=== PATIENT | female | born 1940 | race Caucasian/White ===

== ENCOUNTER 2016-10-30 16:52 | Inpatient (IN) | payer MEDICARE, MEDICAID ==
[~2016-10-30] VITALS: Ht 154.9 cm; Wt 59.4 kg
[2016-10-30 20:00] VITALS: BP 142/54
--- NOTE | 2016-10-30 20:00 | NUR ---
LABORER ELECTROPLATING NOTE RECEIVED PATIENT FROM [facility]. SISTER AT BEDSIDE WITH ALL BELONGINGS. NO RESPIRATORY DISTRESS, CHEST PAIN OR DISCOMFORT OF ANY KIND AT THIS TIME. PATIENT CONFUSED AT THIS TIME. ORIENTED PATIENT AND SISTER TO ROOM AND TO UNIT. NO SKIN BREAKDOWN OR BRUISING NOTED. ALL BELONGINGS CHECKED AND ACCOUNTED FOR. IV SITES INTACT, WITH NO REDNESS NOTED. BED LOCKED AND IN LOWEST POSITION. SIDE RAILS UP, CALL LIGHT WITHIN REACH. WILL CONTINUE TO MONITOR.
[2016-10-30] MEDS ORDERED: HYDROCODONE/APAP 5/325MG 1 EACH TABLET PO PRN (20:30)
[2016-10-30] MEDS ORDERED: Z GUARD REMEDY 2 OZ OINT TP PRN (20:30)
[2016-10-30] MEDS ORDERED: ZOLPIDEM TARTRATE 5 MG TABLET PO PRN (20:30)
[2016-10-30] MEDS ORDERED: ONDANSETRON HCL/PF 4 MG/2 ML VIAL IVP PRN (20:30)
[2016-10-30] MEDS ORDERED: ACETAMINOPHEN 325 MG TABLET PO PRN (20:30)
[2016-10-30] MEDS ORDERED: MAGNESIUM HYDROXIDE 30 ML UDC PO PRN (20:30)
[2016-10-30] MEDS ORDERED: FERR-58 PO (21:17)
[2016-10-30] MEDS ORDERED: CHOL200026 PO (21:17)
[2016-10-30] MEDS ORDERED: CALC500T71 PO (21:17)
[2016-10-30] MEDS ORDERED: LEVE500T9 PO (21:17)
[2016-10-30] MEDS ORDERED: UBID400C5 PO (21:17)
[2016-10-30] MEDS ORDERED: TRIA10.8 NS (21:17)
[2016-10-30] MEDS ORDERED: MEMA1CAP3 PO (21:17)
[2016-10-30] MEDS ORDERED: RAMI5CAP PO (21:17)
[2016-10-30] MEDS ORDERED: LORA-258 PO (21:17)
[2016-10-30] MEDS ORDERED: ATOR10TA PO (21:17)
[2016-10-31] VITALS: BP 142/59
[2016-10-31] MEDS ORDERED: LORAZEPAM 0.5 MG TABLET PO PRN (01:00)
[2016-10-31 04:00] VITALS: BP 160/67
--- NOTE | 2016-10-31 06:28 | NUR ---
RN TEAM LEADER NOTE PATIENT STABLE. SLEEPING WELL. NORMAL RESPIRATIONS. NO S/S OF DISCOMFORT. ALL NEEDS MET AND ATTENDED TO. WILL ENDORSE TO DAY SHIFT FOR ALYSE.
[2016-10-31 07:06] VITALS: BP 161/76
[2016-10-31 07:21] LABS: BASOPHILS # (AUTO) 0.1 /CMM (0.0-0.2); EOSINOPHILS # (AUTO) 0.8 /CMM (0.0-0.7); EOSINOPHILS % (AUTO) 8.9 % (0.0-6.0); HEMATOCRIT 37 % (33-45); HEMOGLOBIN 12.3 g/dL (11.5-14.8); LYMPHOCYTES # (AUTO) 1.9 /CMM (0.8-4.8); LYMPHOCYTES % (AUTO) 21.8 % (20.0-44.0); MEAN CORPUSCULAR HEMOGLOBIN 30 PG (26.0-33.0); MEAN CORPUSCULAR HGB CONC 33 g/dl (31.0-36.0); MEAN CORPUSCULAR VOLUME 90 fL (82-100); MONOCYTES # (AUTO) 0.7 /CMM (0.1-1.30); MONOCYTES % (AUTO) 8.3 % (2.0-12.0); NEUTROPHILS # (AUTO) 5.3 /CMM (1.8-8.9); PLATELET COUNT (AUTO) 193 /CMM (150-450); RDW COEFFICIENT OF VARIATION 13.6 (11.5-15.0); WHITE BLOOD COUNT (AUTO) 8.8 K/uL (4.3-11.0)
[2016-10-31 07:25] LABS: CALCIUM, SERUM 8.5 mg/dL (8.5-10.1); CREATININE 0.7 mg/dL (0.6-1.3); MAGNESIUM 1.9 mg/dL (1.8-2.4); PHOSPHORUS 3.5 mg/dL (2.5-4.9)
[2016-10-31] MEDS: PANTOPRAZOLE 40 MG TABLET.DR PO SCH (07:30)
--- NOTE | 2016-10-31 08:00 | NUR ---
SAS ARCHITECT NOTES PATIENT IN BED RESTING NOS SOB OR ACUTE DISTRESS NOTED. BED IN LOW LOCKED POSITION. CALL LIGHT WITHIN REACH. PATIENT NPO FOR NUCLEAR MEDICINE CARDIAC STRESS TEST. WILL CONTINUE TO MONITOR CLOSELY.
--- NOTE | 2016-10-31 08:00 | NUR ---
TWISTER HAND NOTES PATIENT IN BED RESTING NO SOB OR ACUTE DISTRESS NOTED. BED IN LOW LOCKED POSITION. CALL LIGHT WITHIN REACH. WILL CONTINUE TO MONITOR CLOSELY .
[2016-10-31] MEDS: CALCIUM CARBONATE (1250) 500 MG TABLET PO SCH ×2 (09:00→17:16)
[2016-10-31] MEDS: FERROUS SULFATE (325 MG) 325 MG/TAB TABLET PO SCH (09:00)
[2016-10-31] MEDS: LEVETIRACETAM (250 MG) 250 MG TABLET PO SCH ×2 (09:29→22:54)
[2016-10-31 09:41] LABS: THYROID STIMULATING HORMONE 2.946 uIU/mL (0.358-3.74)
--- NOTE | 2016-10-31 11:41 | NUR ---
Social Service consult requested by [facility]. Per H&P report by LUKAS Cheek, pt. is a 76 year old female who was transferred from [facility]. Per [facility] reports, pt complained of palpitations and chest pressure this am. Pt. stated she forgot to take her medication this morning. Also she complained of generalized weakness since 11am. SW met with pt. bedside. 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. Pt. is originally from [place]. Pt's roommate Sister Marguerite was bedside as well. Pt. is A&O x 3. Pt. appeared anxious. Pt. has a history of brain aneurysm and had a clip in 1991. Pt. resides with Sister Marguerite [place] [address] [facility]. Pt. was having trouble spelling her name and writing her signature for consent for an contrast MRI. Pt. informed SW, she is " tired of being sick and tired." Pt. denies suicidal/homicidal ideations and visual/auditory hallucinations at this time. Pt. suffers from anxiety and wishes to be well. Pt. displays some memory loss. Pt. had to leave for an MRI. SW is available for pt. if needed.
[2016-10-31] MEDS ORDERED: REGADENOSON 0.4 MG/5 ML DISP.SYRIN IVP ONE (12:30)
[2016-10-31] MEDS ORDERED: CT SWABBABLE VALVE TRANS SET 1 EA INFUS.SET MC ONE (12:31)
[2016-10-31] MEDS ORDERED: IV NS 0.9% 250 ML IV ONE (12:31)
[2016-10-31] MEDS ORDERED: IOHEXOL-300 100 ML VIAL IV ONE (12:31)
[2016-10-31] MEDS: hydrALAZINE HCL 10 MG TABLET PO SCH ×2 (13:51→22:54)
--- NOTE | 2016-10-31 14:00 | NUR ---
MS RN NOTES PATIENT COMPLETED STRESS TEST AND CT OF BRAIN WITH AND WITHOUT CONTRAST WITH NO ADVERSE REACTION. WILL CONTINUE TO MONITOR.
[2016-10-31 16:00] VITALS: BP 140/65
[2016-10-31 17:42] LABS: APPEARANCE,URINE CLEAR (CLEAR); BILIRUBIN,URINE NEGATIVE (NEGATIVE); BLOOD, URINE NEGATIVE Ery/uL (NEGATIVE); COLOR,URINE YELLOW (YELLOW); KETONES,URINE NEGATIVE (NEGATIVE); LEUKOCYTE ESTERASE ,URINE NEGATIVE (NEGATIVE); NITRITE, URINE NEGATIVE (NEGATIVE); PH,URINE 7.5 (5.0-8.0); PROTEIN,URINE NEGATIVE (NEGATIVE); UGLUCOSE NEGATIVE (NEGATIVE); UROBILINOGEN,URINE 0.2 EU/dL (0.2)
[2016-10-31] MEDS ORDERED: RAMIPRIL 5 MG CAPSULE PO SCH (18:00)
[2016-10-31] MEDS ORDERED: UBIDECARENONE 400 MG PO SCH (18:00)
[2016-10-31] MEDS ORDERED: ATORVASTATIN 10 MG TABLET PO SCH (18:00)
[2016-10-31] MEDS ORDERED: CHOLECALCIFEROL 1,000 UNIT TABLET (VIT D3) PO SCH (18:00)
--- NOTE | 2016-10-31 18:25 | NUR ---
MS RN NOTES PATIENT IN BED RESTING NO SOB OR ACUTE DISTRESS NOTED . ALL DUE MEDICATIONS GIVEN. ALL NEEDS MET WILL ENDORSE TO PM SHIFT ALYSE.
--- NOTE | 2016-10-31 19:30 | NUR ---
MS RN NOTE PATIENT STABLE. NO RESPIRATORY DISTRESS OR SOB NOTED. IV SITE TO LAC IS FLUSHING WELL BUT IS ERD. PATIENT WOULD LIKE IT REMOVED. IV SITE REMOVED, BUT PATIENT IS REFUSING TO HAVE A NEW LINE INSERTED AT THIS TIME. WILL TRY AGAIN LATER. BED LOCKED AND IN LOWEST POSITION. SIDE RAILS UP, CALL LIGHT WITHIN REACH. WILL CONTINUE TO MONITOR.
[2016-10-31 20:00] VITALS: BP 134/58
[2016-10-31] MEDS ORDERED: TRIAMCINOLONE NASAL SPRAY 16.5 GM INHALER NS SCH (20:00)
[2016-10-31 21:10] VITALS: BP 134/58
--- NOTE | 2016-11-01 02:00 | NUR ---
MS RN NOTE ATTEMPTED TO RE-INSERT IV WITH NO SUCCESS. WILL TRY AGAIN LATER.
[2016-11-01] MEDS: hydrALAZINE HCL 10 MG TABLET PO SCH ×2 (05:28→12:22)
--- NOTE | 2016-11-01 06:53 | NUR ---
MS RN NOTE PATIENT STABLE. ATTEMPTED TO RE-INSERT IV TWICE WITH NO SUCCESS. WILL ENDORSE TO DAY SHIFT FOR ALYSE.
[2016-11-01 07:06] LABS: CALCIUM, SERUM 8.7 mg/dL (8.5-10.1); MAGNESIUM 1.9 mg/dL (1.8-2.4)
--- NOTE | 2016-11-01 07:10 | NUR ---
MS RN INITIAL NOTES REPORT RECEIVED AT THE BEDSIDE. PATIENT IS SLEEPING. NO SOB OR DISTRESS NOTED AT THIS TIME. PATIENT DOES NOT APPEAR TO BE IN PAIN, NO FACIAL GRIMACE NOTED. BED IN A LOW POSITION, CALL LIGHT WITHIN PATIENT REACH. WILL CONTINUE TO MONITOR.
[2016-11-01 08:00] VITALS: BP 144/64
[2016-11-01] MEDS: FERROUS SULFATE (325 MG) 325 MG/TAB TABLET PO SCH (08:15)
[2016-11-01] MEDS: PANTOPRAZOLE 40 MG TABLET.DR PO SCH (08:15)
[2016-11-01] MEDS: CALCIUM CARBONATE (1250) 500 MG TABLET PO SCH (09:03)
[2016-11-01] MEDS: LEVETIRACETAM (250 MG) 250 MG TABLET PO SCH (09:03)
[2016-11-01 12:22] VITALS: BP 141/64
--- NOTE | 2016-11-01 14:07 | NUR ---
MS WHEEL ALIGNMENT TECHNICIAN NOTE DISCHARGE INSTRUCTIONS GIVEN TO PATIENT AND SISTER AND ABLE TO UNDERSTAND. ALL DISCHARGE PAPERWORK SIGNED AND BELONGINGS ACCOUNTED FOR. IV WAS PREVIOUSLY REMOVED, NO BLEEDING NOTED AT THE SITE. FLU AND PNEUMONIA VACCINES NOT GIVEN PATIENT REFUSES. PICTURES OF SKIN NOT NEEDED PATIENT SKIN IS INTACT. PATIENT LEFT IN STABLE CONDITION, AMBULATORY, NO SOB OR DISTRESS NOTED, PATIENT DENIES PAIN. PATIENT TOLERATING AMBULATION WITHOUT PROBLEM. PATIENT LEFT VIA PRIVATE CAR, DISCHARGED TO HOME WITH SISTER.
== END 2016-11-01 14:10 | disposition home or self-care (01) | DRG 313 ==
LOC: TELE 19:00 → MED 10-31 16:53
PROVIDERS: ADMIT Nurse Practitioner Acute Care; ATTEND Nurse Practitioner Acute Care
DX: R07.89 Other chest pain (principal); E87.0 Hyperosmolality and hypernatremia; F03.90 Unspecified dementia, unspecified severity, without behavioral disturbance, psychotic disturbance, mood disturbance, and anxiety; E78.5 Hyperlipidemia, unspecified; E86.0 Dehydration; I10 Essential (primary) hypertension; F41.9 Anxiety disorder, unspecified; R53.1 Weakness; I67.2 Cerebral atherosclerosis; R56.9 Unspecified convulsions; Z86.79 Personal history of other diseases of the circulatory system
CPT/HCPCS: 36415; 70470-TC; 80048-TC; 80061-TC; 81000-TC; 82306; 82728-TC; 83540-TC; 83735-TC; 84100-TC; 84439-TC; 84443-TC; 84484-TC; 85025-TC; 87081-TC; 93307-TC; A9502; J2785; J7050; Q9967

== ENCOUNTER 2018-05-10 21:06 | Inpatient (IN) | payer MEDICARE, OTHER ==
[~2018-05-10] VITALS: Ht 170.2 cm; Wt 68.0 kg
[~2018-05-10 21:06] MED LIST: ATOR10TA PO; CALC-1026 PO; CHOL200026 PO; FERR325T24 PO; LEVE500T9 PO; LORA-258 PO; MEMA1CAP3 PO; RAMI5CAP66 PO; TRIA10.8 BNOSTRILS; UBID400C5 PO
[2018-05-10 22:55] LABS: APPEARANCE,URINE CLEAR (CLEAR); BILIRUBIN,URINE NEGATIVE (NEGATIVE); BLOOD, URINE NEGATIVE Ery/uL (NEGATIVE); COLOR,URINE YELLOW (YELLOW); KETONES,URINE TRACE (NEGATIVE); LEUKOCYTE ESTERASE ,URINE NEGATIVE (NEGATIVE); NITRITE, URINE NEGATIVE (NEGATIVE); PROTEIN,URINE NEGATIVE (NEGATIVE); UGLUCOSE NEGATIVE (NEGATIVE); UROBILINOGEN,URINE 0.2 EU/dL (0.2)
[2018-05-10 22:56] LABS: BASOPHILS # (AUTO) 0.1 /CMM (0.0-0.2); BASOPHILS % (AUTO) 0.8 % (0.0-2.0); EOSINOPHILS % (AUTO) 4.2 % (0.0-6.0); HEMATOCRIT 37 % (33-45); HEMOGLOBIN 11.9 g/dL (11.5-14.8); LYMPHOCYTES # (AUTO) 1.8 /CMM (0.8-4.8); LYMPHOCYTES % (AUTO) 18.2 % (20.0-44.0); MEAN CORPUSCULAR HGB CONC 32 g/dl (31.0-36.0); MEAN CORPUSCULAR VOLUME 95 fL (82-100); MONOCYTES # (AUTO) 0.8 /CMM (0.1-1.30); MONOCYTES % (AUTO) 8.4 % (2.0-12.0); NEUTROPHILS # (AUTO) 6.8 /CMM (1.8-8.9); NEUTROPHILS % (AUTO) 68.4 % (43.0-81.0); PLATELET COUNT (AUTO) 179 /CMM (150-450); RED BLOOD CELL COUNT(AUTO) 3.87 MIL/uL (4.0-5.2)
[2018-05-10 23:05] LABS: CALCIUM, SERUM 9.3 mg/dL (8.5-10.1); CARBON DIOXIDE 28 mmol/L (21-32); CHLORIDE 105 mmol/L (98-107); CREATININE 1.2 mg/dL (0.6-1.3); GLUCOSE 85 mg/dL (74-106); POTASSIUM 3.5 mmol/L (3.5-5.1); SODIUM SERUM 143 mmol/L (136-145)
[2018-05-10 23:10] LABS: INR 1.07 (0.87-1.13)
[2018-05-10 23:19] LABS: BACTERIA,URINE None seen /HPF (None Seen); RBC,URINE 0-2 /HPF (0-2); SQUAMOUS EPITHELIAL CELL,UR Few /HPF (None Seen)
[2018-05-10 23:20] LABS: HYALINE CASTS, URINE Few /LPF (None Seen)
[2018-05-10 23:21] LABS: TROPONIN I 0.134 ng/mL (0.00-0.056)
[2018-05-10 23:24] LABS: UREA NITROGEN, BLOOD 36 mg/dL (7-18)
[2018-05-11] VITALS (7 sets, daily range): BP systolic 100–154; BP diastolic 55–79
[2018-05-11] MEDS ORDERED: IV NS 0.9% 1,000 ML BAG IV ONE
[2018-05-11] MEDS ORDERED: ASPIRIN 81 MG TAB.CHEW PO ONE (00:30)
[2018-05-11] MEDS ORDERED: ASPIRIN 81 MG TAB.CHEW ONE (00:34)
[2018-05-11] MEDS ORDERED: IV NS 0.9% 1,000 ML IV PRN (01:27)
[2018-05-11] MEDS ORDERED: MORPHINE SULFATE INJ 2 MG/ML DISP.SYRIN IV PRN (01:30)
[2018-05-11] MEDS ORDERED: ZOLPIDEM TARTRATE 5 MG TABLET PO PRN (01:30)
[2018-05-11] MEDS ORDERED: HYDROCODONE/APAP 5/325MG 1 EACH TABLET PO PRN (01:30)
[2018-05-11] MEDS ORDERED: MAGNESIUM HYDROXIDE 30 ML UDC PO PRN (01:30)
[2018-05-11] MEDS ORDERED: ACETAMINOPHEN 325 MG TABLET PO PRN (01:30)
[2018-05-11] MEDS ORDERED: ONDANSETRON HCL/PF 4 MG/2 ML VIAL IVP PRN (01:30)
[2018-05-11] MEDS ORDERED: MAG HYDROX/AL HYDROX/SIMETH 30 ML UDC PO PRN (01:30)
[2018-05-11 06:43] LABS: TROPONIN I 0.057 ng/mL (0.00-0.056)
[2018-05-11 06:51] LABS: THYROID STIMULATING HORMONE 3.379 uIU/mL (0.358-3.74)
[2018-05-11 07:03] LABS: ALBUMIN 2.9 g/dL (3.4-5.0); BILIRUBIN,DIRECT 0.1 mg/dL (0.0-0.2); BILIRUBIN,TOTAL 0.4 mg/dL (0.2-1.0); TOTAL PROTEIN, SERUM 5.9 g/dL (6.4-8.2)
[2018-05-11] MEDS ORDERED: MORPHINE SULFATE INJ 4 MG/ML DISP.SYRIN IV PRN (07:48)
[2018-05-11] MEDS: LEVETIRACETAM (250 MG) 250 MG TABLET PO SCH ×2 (08:57→21:11)
[2018-05-11] MEDS: IV NS 0.9% 1,000 ML IV PRN ×2 (08:58→21:06)
[2018-05-11] MEDS ORDERED: FERROUS SULFATE (325 MG) 325 MG/TAB TABLET PO SCH (09:00)
[2018-05-11] MEDS: ENOXAPARIN SODIUM 40 MG/0.4 ML DISP.SYRIN SQ SCH (09:02)
[2018-05-11] MEDS: LORAZEPAM 0.5 MG TABLET PO PRN (09:15)
[2018-05-11] MEDS ORDERED: MAGN400T26 PO (14:44)
[2018-05-11] MEDS ORDERED: SENN-18 PO (14:44)
[2018-05-11] MEDS ORDERED: DONE10TA44 PO (14:44)
[2018-05-11] MEDS ORDERED: MULT-447 PO (14:44)
[2018-05-11] MEDS ORDERED: POLY17PO4 PO (14:44)
[2018-05-11] MEDS ORDERED: MEMA10TA PO (14:44)
[2018-05-11] MEDS ORDERED: HYDR25TA4 PO (14:44)
[2018-05-11] MEDS ORDERED: TRIA16.99 BNOSTRILS (14:44)
[2018-05-11] MEDS ORDERED: RISP0.253 PO ×2 (14:44)
[2018-05-11] MEDS ORDERED: BISA10SU8 RC (14:44)
[2018-05-11] MEDS ORDERED: TRAZ-182 PO (14:44)
[2018-05-11] MEDS ORDERED: ASPI-1169 PO (14:44)
[2018-05-11] MEDS ORDERED: MAGN400O6 PO (14:44)
[2018-05-11] MEDS: RAMIPRIL 5 MG CAPSULE PO SCH (17:39)
[2018-05-11] MEDS ORDERED: ATORVASTATIN 10 MG TABLET PO SCH (18:00)
[2018-05-12] VITALS: BP 146/63
[2018-05-12] MEDS: LORAZEPAM 0.5 MG TABLET PO PRN ×2 (00:52→21:19)
[2018-05-12 04:00] VITALS: BP 130/51
[2018-05-12] MEDS: IV NS 0.9% 1,000 ML IV PRN ×2 (05:18→17:34)
[2018-05-12 06:43] LABS: ALANINE AMINOTRANSFERASE 17 U/L (12-78); ALBUMIN 2.8 g/dL (3.4-5.0); ALKALINE PHOSPHATASE 123 U/L (46-116); ASPARTATE AMINOTRANSFERASE 20 U/L (15-37); BILIRUBIN,TOTAL 0.4 mg/dL (0.2-1.0); CALCIUM, SERUM 7.9 mg/dL (8.5-10.1); CARBON DIOXIDE 22 mmol/L (21-32); CHLORIDE 110 mmol/L (98-107); CREATININE 0.8 mg/dL (0.6-1.3); GLUCOSE 88 mg/dL (74-106); MAGNESIUM 1.7 mg/dL (1.8-2.4); PHOSPHORUS 2.4 mg/dL (2.5-4.9); POTASSIUM 3.2 mmol/L (3.5-5.1); SODIUM SERUM 143 mmol/L (136-145); TOTAL PROTEIN, SERUM 5.8 g/dL (6.4-8.2); UREA NITROGEN, BLOOD 22 mg/dL (7-18)
[2018-05-12 06:45] LABS: BASOPHILS # (AUTO) 0.1 /CMM (0.0-0.2); BASOPHILS % (AUTO) 0.5 % (0.0-2.0); HEMATOCRIT 33 % (33-45); LYMPHOCYTES # (AUTO) 1.1 /CMM (0.8-4.8); LYMPHOCYTES % (AUTO) 10.5 % (20.0-44.0); MEAN CORPUSCULAR HGB CONC 33 g/dl (31.0-36.0); MEAN CORPUSCULAR VOLUME 96 fL (82-100); MONOCYTES # (AUTO) 0.8 /CMM (0.1-1.30); NEUTROPHILS # (AUTO) 8.5 /CMM (1.8-8.9); PLATELET COUNT (AUTO) 158 /CMM (150-450); RDW COEFFICIENT OF VARIATION 14.1 (11.5-15.0); WHITE BLOOD COUNT (AUTO) 10.8 K/uL (4.3-11.0)
[2018-05-12 06:46] LABS: TROPONIN I 0.037 ng/mL (0.00-0.056)
[2018-05-12 08:00] VITALS: BP 149/79
[2018-05-12] MEDS: PANTOPRAZOLE 40 MG TABLET.DR PO SCH (08:52)
[2018-05-12] MEDS: LEVETIRACETAM (250 MG) 250 MG TABLET PO SCH ×2 (08:52→20:21)
[2018-05-12] MEDS: ENOXAPARIN SODIUM 40 MG/0.4 ML DISP.SYRIN SQ SCH (08:53)
[2018-05-12] MEDS: POTASSIUM CHLORIDE 20 MEQ TAB.PRT.SR PO SCH ×2 (09:46→10:35)
[2018-05-12] MEDS: Magnesium 1GM/D5W 100ML PREMIX 100 ML IV SCH ×2 (09:46→10:35)
[2018-05-12] MEDS ORDERED: K PHOS NEUTRAL 250 MG TABLET PO ONE (13:30)
[2018-05-12 16:00] VITALS: BP 163/75
[2018-05-12] MEDS: ENSURE ENLIVE 237 ML LIQUID (VANILLA) PO SCH (17:57)
[2018-05-12] MEDS: RAMIPRIL 5 MG CAPSULE PO SCH (18:07)
[2018-05-12 19:30] VITALS: BP 159/68
[2018-05-12] MEDS ORDERED: hydrALAZINE HCL 25 MG TABLET PO PRN (19:30)
[2018-05-13 01:30] VITALS: BP 140/97
[2018-05-13] MEDS ORDERED: FUROSEMIDE 20 MG/2 ML VIAL IV ONE ×2 (02:00→09:00)
[2018-05-13] MEDS: Z GUARD REMEDY 2 OZ OINT TP PRN ×2 (02:42→06:01)
[2018-05-13] MEDS: IV NS 0.9% 1,000 ML IV PRN (06:01)
[2018-05-13 08:00] VITALS: BP 128/63
[2018-05-13] MEDS: PANTOPRAZOLE 40 MG TABLET.DR PO SCH (08:31)
[2018-05-13] MEDS: ENOXAPARIN SODIUM 40 MG/0.4 ML DISP.SYRIN SQ SCH (08:31)
[2018-05-13] MEDS: LEVETIRACETAM (250 MG) 250 MG TABLET PO SCH ×2 (08:32→21:31)
[2018-05-13 08:37] LABS: BASOPHILS % (AUTO) 0.3 % (0.0-2.0); EOSINOPHILS % (AUTO) 0.5 % (0.0-6.0); HEMATOCRIT 33 % (33-45); HEMOGLOBIN 10.7 g/dL (11.5-14.8); LYMPHOCYTES # (AUTO) 1.1 /CMM (0.8-4.8); LYMPHOCYTES % (AUTO) 8.6 % (20.0-44.0); MEAN CORPUSCULAR HGB CONC 32 g/dl (31.0-36.0); MEAN CORPUSCULAR VOLUME 95 fL (82-100); MONOCYTES # (AUTO) 1.2 /CMM (0.1-1.30); MONOCYTES % (AUTO) 9.5 % (2.0-12.0); NEUTROPHILS % (AUTO) 81.1 % (43.0-81.0); PLATELET COUNT (AUTO) 164 /CMM (150-450); RDW COEFFICIENT OF VARIATION 14.1 (11.5-15.0); WHITE BLOOD COUNT (AUTO) 12.3 K/uL (4.3-11.0)
[2018-05-13] MEDS: ENSURE ENLIVE 237 ML LIQUID (VANILLA) PO SCH (08:41)
[2018-05-13 08:49] LABS: CARBON DIOXIDE 24 mmol/L (21-32); CHLORIDE 109 mmol/L (98-107); CREATININE 0.8 mg/dL (0.6-1.3); GLUCOSE 97 mg/dL (74-106); MAGNESIUM 1.9 mg/dL (1.8-2.4); PHOSPHORUS 2.9 mg/dL (2.5-4.9); POTASSIUM 3.3 mmol/L (3.5-5.1); SODIUM SERUM 143 mmol/L (136-145); UREA NITROGEN, BLOOD 13 mg/dL (7-18)
[2018-05-13] MEDS ORDERED: POTASSIUM CHLORIDE 20 MEQ TAB.PRT.SR PO ONE (10:30)
[2018-05-13] MEDS: POTASSIUM CL. PREMIX PERIPHER. 50 ML IV SCH ×2 (12:30→13:30)
[2018-05-13] MEDS: ASPIRIN 81 MG TAB.CHEW PO SCH (12:31)
[2018-05-13] MEDS: HYDROCHLOROTHIAZIDE 25 MG TABLET PO SCH (12:33)
[2018-05-13 15:58] VITALS: BP 110/53
[2018-05-13 16:00] VITALS: BP 110/53
[2018-05-13] MEDS ORDERED: TRIAMCINOLONE ACETONIDE BNOSTRILS SCH (17:00)
[2018-05-13] MEDS: MEMANTINE HCL 5 MG TABLET PO SCH (17:26)
[2018-05-13] MEDS: RAMIPRIL 5 MG CAPSULE PO SCH (17:28)
[2018-05-13 20:07] VITALS: BP 146/69
[2018-05-13] MEDS: LORAZEPAM 0.5 MG TABLET PO PRN (21:31)
[2018-05-13] MEDS ORDERED: POLYETHYLENE GLYCOL 3350 17 GM POWD.PACK PO SCH (22:00)
[2018-05-13] MEDS ORDERED: TRIAMCINOLONE NASAL SPRAY 16.5 GM INHALER NS SCH (22:00)
[2018-05-14 08:00] VITALS: BP 139/73
[2018-05-14] MEDS: ENOXAPARIN SODIUM 40 MG/0.4 ML DISP.SYRIN SQ SCH (08:16)
[2018-05-14] MEDS: LEVETIRACETAM (250 MG) 250 MG TABLET PO SCH (08:16)
[2018-05-14] MEDS: ASPIRIN 81 MG TAB.CHEW PO SCH (08:16)
[2018-05-14] MEDS: HYDROCHLOROTHIAZIDE 25 MG TABLET PO SCH (08:17)
[2018-05-14] MEDS: PANTOPRAZOLE 40 MG TABLET.DR PO SCH (08:18)
[2018-05-14] MEDS: MEMANTINE HCL 5 MG TABLET PO SCH (08:18)
[2018-05-14] MEDS: ENSURE ENLIVE 237 ML LIQUID (VANILLA) PO SCH (08:23)
[2018-05-14] MEDS ORDERED: MULTIVIT, IRON, MIN NO. 8, FA 1 TAB PO SCH (09:00)
[2018-05-14] MEDS ORDERED: MAGNESIUM OXIDE 400 MG TABLET PO SCH (09:00)
[2018-05-14] MEDS: POTASSIUM CHLORIDE 20 MEQ TAB.PRT.SR PO SCH ×3 (09:00→11:00)
[2018-05-14 10:46] LABS: BASOPHILS # (AUTO) 0.1 /CMM (0.0-0.2); BASOPHILS % (AUTO) 1.1 % (0.0-2.0); EOSINOPHILS % (AUTO) 2.5 % (0.0-6.0); HEMATOCRIT 35 % (33-45); HEMOGLOBIN 11.3 g/dL (11.5-14.8); LYMPHOCYTES # (AUTO) 1.2 /CMM (0.8-4.8); LYMPHOCYTES % (AUTO) 11.1 % (20.0-44.0); MEAN CORPUSCULAR HGB CONC 33 g/dl (31.0-36.0); MEAN CORPUSCULAR VOLUME 95 fL (82-100); MONOCYTES % (AUTO) 9.4 % (2.0-12.0); NEUTROPHILS # (AUTO) 8.3 /CMM (1.8-8.9); NEUTROPHILS % (AUTO) 75.9 % (43.0-81.0); PLATELET COUNT (AUTO) 156 /CMM (150-450); RDW COEFFICIENT OF VARIATION 13.8 (11.5-15.0); RED BLOOD CELL COUNT(AUTO) 3.66 MIL/uL (4.0-5.2); WHITE BLOOD COUNT (AUTO) 10.9 K/uL (4.3-11.0)
[2018-05-14 10:57] LABS: CALCIUM, SERUM 8.8 mg/dL (8.5-10.1); CARBON DIOXIDE 28 mmol/L (21-32); CHLORIDE 108 mmol/L (98-107); CREATININE 0.8 mg/dL (0.6-1.3); GLUCOSE 94 mg/dL (74-106); POTASSIUM 3.7 mmol/L (3.5-5.1); SODIUM SERUM 142 mmol/L (136-145); UREA NITROGEN, BLOOD 22 mg/dL (7-18)
[2018-05-14 15:33] VITALS: BP 135/64
== END 2018-05-14 15:30 | DRG 64 ==
LOC: ER 21:17 → TELE 05-11 00:54 → MED 05-12 09:08
PROVIDERS: ADMIT Internal Medicine; ATTEND Internal Medicine
DX: I63.9 Cerebral infarction, unspecified (principal); I21.A1 Myocardial infarction type 2; E44.1 Mild protein-calorie malnutrition; J90 Pleural effusion, not elsewhere classified; G93.40 Encephalopathy, unspecified; N17.9 Acute kidney failure, unspecified; G40.909 Epilepsy, unspecified, not intractable, without status epilepticus; E78.5 Hyperlipidemia, unspecified; I10 Essential (primary) hypertension; E61.1 Iron deficiency; D72.829 Elevated white blood cell count, unspecified; E87.6 Hypokalemia; F41.9 Anxiety disorder, unspecified; Z87.891 Personal history of nicotine dependence; F03.90 Unspecified dementia, unspecified severity, without behavioral disturbance, psychotic disturbance, mood disturbance, and anxiety; R79.89 Other specified abnormal findings of blood chemistry
CPT/HCPCS: 36415; 70450-TC; 71045-TC; 80048-TC; 80053-TC; 80061-TC; 80076-TC; 80305; 81000-TC; 82140-TC; 82728-TC; 83540-TC; 83735-TC; 84100-TC; 84443-TC; 84484-TC; 85025-TC; 85730-TC; 87081-TC; 92611-TC; 93307-TC; A4606; G0378; J1650; J1940; J3475; J7030; Z7610

== ENCOUNTER 2018-12-26 12:50 | Inpatient (IN) | payer MEDICARE, OTHER ==
[~2018-12-26] VITALS: Ht 154.9 cm; Wt 56.2 kg
[~2018-12-26 12:50] MED LIST changes: +ASPI-1169 PO; +BISA10SU8 RC; -CALC-1026 PO; -CHOL200026 PO; +HYDR25TA4 PO; -LORA-258 PO; +MAGN400O6 PO; +MAGN400T26 PO; +MEMA10TA PO; -MEMA1CAP3 PO; +MULT-447 PO; +POLY17PO4 PO; +RISP0.253 PO; +SENN-18 PO; +TRAZ-182 PO; +TRIA16.99 BNOSTRILS; -UBID400C5 PO
--- NOTE | 2018-12-26 13:05 | NUR ---
PATIENT CAME IN FOR LFA CELLULITIS, SISTERS AT BEDSIDE. A/OX1, NO DISTRESS NOTED. BREATHING EVEN AND UNLABORED. KEPT COMFORTABLE. WILL MONITOR.
--- NOTE | 2018-12-26 13:15 | NUR ---
CALLED FOR MED SURGE BED, TURNED IN MOVE SHEET
[2018-12-26] MEDS ORDERED: IV NS 0.9% 500 ML BAG IV ONE (13:30)
[2018-12-26] MEDS ORDERED: VANCOMYCIN 1 GM in IV D5W 250 ML IV ONE (13:30)
[2018-12-26 13:36] LABS: BASOPHILS # (AUTO) 0.1 /CMM (0.0-0.2); BASOPHILS % (AUTO) 0.5 % (0.0-2.0); EOSINOPHILS % (AUTO) 4.2 % (0.0-6.0); HEMATOCRIT 37 % (33-45); HEMOGLOBIN 12.3 g/dL (11.5-14.8); LYMPHOCYTES # (AUTO) 1.3 /CMM (0.8-4.8); LYMPHOCYTES % (AUTO) 10.8 % (20.0-44.0); MEAN CORPUSCULAR HGB CONC 33 g/dl (31.0-36.0); MEAN CORPUSCULAR VOLUME 89 fL (82-100); MONOCYTES # (AUTO) 1.3 /CMM (0.1-1.30); MONOCYTES % (AUTO) 10.8 % (2.0-12.0); NEUTROPHILS # (AUTO) 8.7 /CMM (1.8-8.9); NEUTROPHILS % (AUTO) 73.7 % (43.0-81.0); PLATELET COUNT (AUTO) 207 /CMM (150-450); RED BLOOD CELL COUNT(AUTO) 4.14 MIL/uL (4.0-5.2); WHITE BLOOD COUNT (AUTO) 11.8 K/uL (4.3-11.0)
[2018-12-26 13:48] LABS: CALCIUM, SERUM 9.3 mg/dL (8.5-10.1); CARBON DIOXIDE 31 mmol/L (21-32); CHLORIDE 103 mmol/L (98-107); CREATININE 0.9 mg/dL (0.6-1.3); GLUCOSE 92 mg/dL (74-106); POTASSIUM 3.7 mmol/L (3.5-5.1); SODIUM SERUM 142 mmol/L (136-145); UREA NITROGEN, BLOOD 38 mg/dL (7-18)
--- NOTE | 2018-12-26 13:48 | NUR ---
BED 328 MED SURGE
[2018-12-26 13:53] LABS: ALANINE AMINOTRANSFERASE 45 U/L (12-78); ALBUMIN 2.9 g/dL (3.4-5.0); ALKALINE PHOSPHATASE 133 U/L (46-116); ASPARTATE AMINOTRANSFERASE 32 U/L (15-37); BILIRUBIN,DIRECT 0.1 mg/dL (0.0-0.2); BILIRUBIN,TOTAL 0.4 mg/dL (0.2-1.0); TOTAL PROTEIN, SERUM 7.4 g/dL (6.4-8.2)
--- NOTE | 2018-12-26 14:03 | NUR ---
DR. TUCKER AT BEDSIDE, SEEN AND EVALUATED PATIENT. REPORT GIVEN TO GURPREET PABON.
--- NOTE | 2018-12-26 14:27 | NUR ---
PATIENT TRANSFERRED TO ROOM 328, IN STABLE CONDITION.
[2018-12-26] MEDS ORDERED: SODI45SP4 NS (14:36)
[2018-12-26] MEDS ORDERED: AMIN30LI27 PO (14:36)
[2018-12-26] MEDS ORDERED: DONE10TA44 PO (14:36)
--- NOTE | 2018-12-26 15:00 | NUR ---
MS RN RECEIVED A NEW ADMISSION,FROM ER, AWAKE, CONFUSE NOT IN ANY FORM OF DISTRESS, RESPIRATIONS EVEN AND UNLABORED,NO SOB NOTED, CAME IN W/ LEFT ARM CELLULITIS,DENIES PAIN AT THIS TIME, ALL NEEDS ATTENDED.
[2018-12-26] MEDS ORDERED: ACETAMINOPHEN 325 MG TABLET PO PRN (15:30)
[2018-12-26] MEDS ORDERED: CLINDAMYCIN IV RTU IN D5W 900 MG/50 ML PIGGYBACK IV SCH (15:30)
[2018-12-26] MEDS ORDERED: ONDANSETRON HCL/PF 4 MG/2 ML VIAL IVP PRN (15:30)
[2018-12-26] MEDS ORDERED: MAG HYDROX/AL HYDROX/SIMETH 30 ML UDC PO PRN (15:30)
[2018-12-26] MEDS ORDERED: MAGNESIUM HYDROXIDE 30 ML UDC PO PRN ×2 (15:30)
[2018-12-26] MEDS ORDERED: ZOLPIDEM TARTRATE 5 MG TABLET PO PRN (15:30)
[2018-12-26] MEDS ORDERED: Z GUARD REMEDY 2 OZ OINT TP PRN (15:30)
[2018-12-26] MEDS ORDERED: HYDROCODONE/APAP 5/325MG 1 EACH TABLET PO PRN (15:30)
[2018-12-26] MEDS: PROSOURCE / PROSTAT (PYXIS) 30 ML UDC PO SCH (16:00)
--- NOTE | 2018-12-26 16:00 | NUR ---
MS RN WAS SEEN BY DR.ANDONIAN Bernal/ ORDERS MADE AND CARRIED OUT.
[2018-12-26] MEDS: RAMIPRIL 5 MG CAPSULE PO SCH (18:00)
[2018-12-26] MEDS: MEMANTINE HCL 5 MG TABLET PO SCH (18:07)
[2018-12-26] MEDS: ATORVASTATIN 10 MG TABLET PO SCH (18:07)
[2018-12-26] MEDS: LEVETIRACETAM (250 MG) 250 MG TABLET PO SCH (18:08)
--- NOTE | 2018-12-26 19:08 | NUR ---
RN MS OPENING NOTES RECEIVED PATIENT IN BED, AWAKE ALERT AND ORIENTED X1, NOTED CONFUSED, UNABLE TO MAKE NEEDS KNOWN, RESPIRATIONS EVEN AND UNLABORED WITH EQUAL RISE AND FALL OF CHEST, APPEARS TO BE FREE OF PAIN. NO FACIAL GRIMACING, NO MOANS PRESENT, IV REMOVED TO RIGHT WRIST #20 PATIENT PULLED OUT, NEW SITE STARTED TO RIGHT HAND #22, INTACT AND PATENT, NO REDNESS, NO INFILTRATION, ORIENTED TO STAFF AND CALL LIGHT AND KEPT WITHIN REACH, SAFETY PRECAUTIONS IN PLACE, LOW BED AND LOCKED, BED ALARM IN PLACE FOR FALL PRECAUTIONS Z3 SIDE RAILS, CALL LIGHT WITHIN REACH, FLUIDS OFFERED, REPOSITIONING AND PERINEAL CARE PROVIDED, HEELS OFFLOADED, ALL NEEDS ATTENDED WILL CONTINUE TO MONITOR AND ATTEND TO NEEDS.
--- NOTE | 2018-12-26 19:11 | NUR ---
MS RN ON BED, NO DISTRESS NOTED.
[2018-12-26 20:00] VITALS: BP 131/68
--- NOTE | 2018-12-26 20:20 | NUR ---
RN MS NOTES CALLED PHARMACY REGARDING OCEAN NASAL SPRAY, PER PHARM NOT IN FACILITY THEY WILL ORDER TO HAVE IT FOR TOMORROW AM.
[2018-12-26 21:01] VITALS: BP 131/68
[2018-12-26] MEDS: CLINDAMYCIN 900 MG in IV D5W 50 ML IV SCH (21:23)
[2018-12-26] MEDS: SALINE NASAL SPRAY 0.65% 1 BOTTLE BOTTLE NS SCH (21:25)
[2018-12-26] MEDS: DONEPEZIL 5 MG TABLET PO SCH (21:49)
[2018-12-26] MEDS: TRAZODONE 50 MG TABLET PO SCH (21:49)
[2018-12-26] MEDS: SENNOSIDES 8.6 MG TABLET PO SCH (21:49)
--- NOTE | 2018-12-26 23:51 | NUR ---
RN MS NOTES NOTED PATIENT AWAKE, REMOVING GOWN, BLANKETS, NOT SLEEPING, TALKING TO SELF, ATTEMPTING TO GET OUT OF BED, PATIENT IS ALSO REMOVING SOCKS AND ATTEMPTING TO REMOVE NEW IV ACCESS, ATTEMPTED TO REDIRECTED PATIENT TO SLEEP AT THIS TIME , UNABLE TO FOLLOW DIRECTIONS, AFTER CLOSELY MONITORING BASED ON NURSING ASSESSMENT I WILL ADMINISTER PRN AMBIEN TO ASSIST WITH PATIENT SLEEPING.
[2018-12-27] MEDS: CLINDAMYCIN 900 MG in IV D5W 50 ML IV SCH ×3 (04:57→21:48)
--- NOTE | 2018-12-27 06:23 | NUR ---
RN MS CLOSING NOTES PATIENT IN BED, SLEEPING BUT EASILY AROUSABLE NOTED PATIENT WAS AWAKE AND WITH LITTLE PERIODS OF SLEEP TILL 4AM ALERT AND ORIENTED X1, NOTED CONFUSED, UNABLE TO MAKE NEEDS KNOWN, RESPIRATIONS EVEN AND UNLABORED WITH EQUAL RISE AND FALL OF CHEST, APPEARS TO BE FREE OF PAIN. NO FACIAL GRIMACING, NO MOANS PRESENT, IV TO RIGHT HAND #22, INTACT AND PATENT, NO REDNESS, NO INFILTRATION, CALL LIGHT KEPT WITHIN REACH, SAFETY PRECAUTIONS IN PLACE, LOW BED AND LOCKED, BED ALARM IN PLACE FOR FALL PRECAUTIONS [address], FLUIDS OFFERED, REPOSITIONING AND PERINEAL CARE PROVIDED, HEELS OFFLOADED, SACRAL OFFLOADED, APPLIED MEPILEX AND OFFLOAD FOR SKIN CARE AND MANAGEMENT ALL NEEDS ATTENDED WILL CONTINUE TO MONITOR AND ENDORSE TO NEXT SHIFT.
[2018-12-27 07:19] LABS: BASOPHILS # (AUTO) 0.1 /CMM (0.0-0.2); EOSINOPHILS % (AUTO) 3.1 % (0.0-6.0); HEMATOCRIT 33 % (33-45); LYMPHOCYTES # (AUTO) 1.2 /CMM (0.8-4.8); LYMPHOCYTES % (AUTO) 10.3 % (20.0-44.0); MEAN CORPUSCULAR HGB CONC 33 g/dl (31.0-36.0); MEAN CORPUSCULAR VOLUME 88 fL (82-100); MONOCYTES # (AUTO) 1.3 /CMM (0.1-1.30); MONOCYTES % (AUTO) 11.3 % (2.0-12.0); NEUTROPHILS # (AUTO) 8.9 /CMM (1.8-8.9); NEUTROPHILS % (AUTO) 74.3 % (43.0-81.0); PLATELET COUNT (AUTO) 202 /CMM (150-450); RED BLOOD CELL COUNT(AUTO) 3.74 MIL/uL (4.0-5.2)
[2018-12-27 07:45] LABS: CALCIUM, SERUM 8.4 mg/dL (8.5-10.1); CARBON DIOXIDE 27 mmol/L (21-32); CHLORIDE 104 mmol/L (98-107); CREATININE 0.7 mg/dL (0.6-1.3); GLUCOSE 102 mg/dL (74-106); MAGNESIUM 1.9 mg/dL (1.8-2.4); PHOSPHORUS 3.9 mg/dL (2.5-4.9); POTASSIUM 3.4 mmol/L (3.5-5.1); SODIUM SERUM 140 mmol/L (136-145); UREA NITROGEN, BLOOD 21 mg/dL (7-18)
[2018-12-27 07:46] LABS: CHOLESTEROL 106 mg/dL (<200); HDL CHOLESTEROL 38 mg/dL (40-60); LDL 63 mg/dL (0-99); TRIGLYCERIDES 70 mg/dL (30-150)
--- NOTE | 2018-12-27 07:53 | NUR ---
RN OPENING NOTES PATIENT SLEEPING IN BED. NO APPARENT S/S OF PAIN, DISTRESS OR SOB AT THIS TIME. PT HAS RIGHT HAND #22 IV INTACT AND PATENT. SAFETY PRECAUTIONS IN PLACE, BED IN LOWEST LOCKED POSITION, X2 SIDE RAILS UP AND CALL LIGHT WITHIN REACH. WILL CONTINUE TO MONITOR.
[2018-12-27 08:00] VITALS: BP 113/54
[2018-12-27] MEDS: PROSOURCE / PROSTAT (PYXIS) 30 ML UDC PO SCH (09:00)
[2018-12-27] MEDS ORDERED: POTASSIUM CHLORIDE 20 MEQ TAB.PRT.SR PO ONE (09:00)
[2018-12-27] MEDS: ASPIRIN 81 MG TAB.CHEW PO SCH (09:27)
[2018-12-27] MEDS: LEVETIRACETAM (250 MG) 250 MG TABLET PO SCH ×2 (09:27→17:04)
[2018-12-27] MEDS: MEMANTINE HCL 5 MG TABLET PO SCH ×2 (09:27→17:04)
[2018-12-27] MEDS: HYDROCHLOROTHIAZIDE 25 MG TABLET PO SCH (09:28)
[2018-12-27] MEDS: MAGNESIUM OXIDE 400 MG TABLET PO SCH (09:28)
[2018-12-27] MEDS: MULTIVIT W/MINERALS 1 TAB TABLET PO SCH (09:28)
[2018-12-27 16:00] VITALS: BP 115/56
[2018-12-27] MEDS: ATORVASTATIN 10 MG TABLET PO SCH (17:04)
[2018-12-27] MEDS: RAMIPRIL 5 MG CAPSULE PO SCH (17:05)
--- NOTE | 2018-12-27 18:43 | NUR ---
RN CLOSING NOTES PATIENT SLEEPING IN BED. NO APPARENT S/S OF PAIN, DISTRESS OR SOB AT THIS TIME. PT HAS RIGHT FOREARM #22 IV INTACT AND PATENT. SAFETY PRECAUTIONS IN PLACE, BED IN LOWEST LOCKED POSITION, X2 SIDE RAILS UP AND CALL LIGHT WITHIN REACH. WILL ENDORSE TO PUBLIC ADDRESS SYSTEM MECHANIC NURSE FOR CONTINUITY OF CARE.
--- NOTE | 2018-12-27 19:10 | NUR ---
CHANGE OF SHIFT REPORT Patient in bed, awake. A/O to self only. Stable oxygen saturation on RA, denies SOB. Patient appears anxious. Attempted to remove tubings and getting out of bed unassisted per report. Bilateral Soft wrist restraint in place, maintained safety. Will cont to monitor.
--- NOTE | 2018-12-27 19:48 | NUR ---
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 Patient DPOA/guardian is friend Elise Lynch - [phone]/ [phone] ext [phone]. Patient is on 7days bedhold with plan to return to SNF when discharge. Addendum: 12/27/18 at 1949 by SIMA YANES RN Amended: Links added.
[2018-12-27 20:00] VITALS: BP 128/63
[2018-12-27 20:35] VITALS: BP 128/63
[2018-12-27] MEDS: SENNOSIDES 8.6 MG TABLET PO SCH (21:51)
[2018-12-27] MEDS: TRAZODONE 50 MG TABLET PO SCH (21:52)
[2018-12-27] MEDS: DONEPEZIL 5 MG TABLET PO SCH (21:52)
[2018-12-27] MEDS: SALINE NASAL SPRAY 0.65% 1 BOTTLE BOTTLE NS SCH (21:57)
[2018-12-28] MEDS: CLINDAMYCIN 900 MG in IV D5W 50 ML IV SCH ×3 (05:03→21:19)
[2018-12-28 06:38] LABS: BASOPHILS # (AUTO) 0.1 /CMM (0.0-0.2); BASOPHILS % (AUTO) 0.7 % (0.0-2.0); EOSINOPHILS % (AUTO) 3.9 % (0.0-6.0); HEMATOCRIT 36 % (33-45); HEMOGLOBIN 11.8 g/dL (11.5-14.8); LYMPHOCYTES # (AUTO) 1.5 /CMM (0.8-4.8); LYMPHOCYTES % (AUTO) 14.4 % (20.0-44.0); MEAN CORPUSCULAR HGB CONC 33 g/dl (31.0-36.0); MEAN CORPUSCULAR VOLUME 89 fL (82-100); MONOCYTES # (AUTO) 1.3 /CMM (0.1-1.30); MONOCYTES % (AUTO) 12.7 % (2.0-12.0); NEUTROPHILS # (AUTO) 7.1 /CMM (1.8-8.9); NEUTROPHILS % (AUTO) 68.3 % (43.0-81.0); PLATELET COUNT (AUTO) 213 /CMM (150-450); RED BLOOD CELL COUNT(AUTO) 3.98 MIL/uL (4.0-5.2); WHITE BLOOD COUNT (AUTO) 10.3 K/uL (4.3-11.0)
[2018-12-28 06:52] LABS: CALCIUM, SERUM 8.8 mg/dL (8.5-10.1); CARBON DIOXIDE 28 mmol/L (21-32); CHLORIDE 104 mmol/L (98-107); CREATININE 0.8 mg/dL (0.6-1.3); GLUCOSE 87 mg/dL (74-106); POTASSIUM 3.8 mmol/L (3.5-5.1); SODIUM SERUM 140 mmol/L (136-145); UREA NITROGEN, BLOOD 18 mg/dL (7-18)
--- NOTE | 2018-12-28 07:25 | NUR ---
RN OPENING NOTES RECEIVED PATIENT, ASLEEP BUT EASILY AROUSABLE. ON BILATERAL SOFT RESTRAINTS. ALERT AND ORIENTED TO SELF ONLY. HAS A LUE CELLULITIS. HAS RIGHT FA #22 SALINE LOCKED. WOUND CONSULT STILL PENDING. NO COMPLAINS OF ANY PAIN OR SOB. BED LOCKED AND IN LOWEST POSITION. CALL LIGHT WITHIN REACH. WILL CONTINUE TO MONITOR PATIENT
[2018-12-28 08:00] VITALS: BP 127/68
[2018-12-28] MEDS: MULTIVIT W/MINERALS 1 TAB TABLET PO SCH (09:04)
[2018-12-28] MEDS: HYDROCHLOROTHIAZIDE 25 MG TABLET PO SCH (09:05)
[2018-12-28] MEDS: MEMANTINE HCL 5 MG TABLET PO SCH ×2 (09:05→16:20)
[2018-12-28] MEDS: LEVETIRACETAM (250 MG) 250 MG TABLET PO SCH ×2 (09:06→16:20)
[2018-12-28] MEDS: ASPIRIN 81 MG TAB.CHEW PO SCH (09:06)
[2018-12-28] MEDS: PROSOURCE / PROSTAT (PYXIS) 30 ML UDC PO SCH (09:06)
[2018-12-28] MEDS: MAGNESIUM OXIDE 400 MG TABLET PO SCH (09:06)
--- NOTE | 2018-12-28 10:54 | NUR ---
WOUND CARE CONSULT: PT PRESENTS WITH LEFT ARM DRY SCAB WITH SURROUNDING REDNESS AND EDEMA, PRESENT ON ADMISSION. DEFER TO MD FOR LEFT ARM CELLULITIS. ARM ELEVATED ON PILLOW. RECOMMENDATIONS MADE FOR SKIN PROTECTION. DISCUSSED WITH NURSING STAFF. WILL SEE PRN. TUBBS IN AGREEMENT WITH PLAN OF CARE. CURRENT ROGERS SCORE IS 19. Addendum: 12/28/18 at 1058 by MINNA LUNAU Amended: Links added. Addendum: 12/28/18 at 1121 by MINNA LUNAU CORRECTION: CURRENT ROGERS SCORE IS 13.
--- NOTE | 2018-12-28 14:20 | NUR ---
RN NOTES INSERTED A NEW IV, ON RIGHT HAND #22. PATIENT REMOVED HER IV EVEN WITH RESTRAINTS.
[2018-12-28 16:00] VITALS: BP 127/57
[2018-12-28] MEDS: RAMIPRIL 5 MG CAPSULE PO SCH (17:17)
[2018-12-28] MEDS: ATORVASTATIN 10 MG TABLET PO SCH (17:17)
--- NOTE | 2018-12-28 18:43 | NUR ---
RN CLOSING NOTE PATIENT IN BED, AWAKE WATCHING TV. NO COMPLAINS OF ANY PAIN OR SOB AT THIS TIME. ALERT TO SELF ONLY. INCONTINENT. HAS A LEFT ARM CELLULITIS. SOFT BILATERAL RESTRAINTS TO BE RENEWED TOMORROW AT 1713. INSERTED A NEW IV, RIGHT HAND #22 SALINE LOCKED. BED LOCKED AND IN LOWEST POSITION. ALL MEDS GIVEN. CALL LIGHT WITHIN REACH. WILL ENDORSE TO NOC SHIFT RN FOR ALYSE
--- NOTE | 2018-12-28 19:15 | NUR ---
CHANGE OF SHIFT REPORT Patient in bed, awake, A/O to self only. Stable oxygen saturation on RA, appears anxious. Patient pulled out her IV peripheral line today per report. Not following command, poor judgement and concentration. Fall precaution maintained, will cont to monitor need for bilateral soft wrist restraints.
[2018-12-28 20:00] VITALS: BP 124/58
[2018-12-28] MEDS: SALINE NASAL SPRAY 0.65% 1 BOTTLE BOTTLE NS SCH (21:22)
[2018-12-28] MEDS: DONEPEZIL 5 MG TABLET PO SCH (21:23)
[2018-12-28] MEDS: TRAZODONE 50 MG TABLET PO SCH (21:23)
[2018-12-28] MEDS: SENNOSIDES 8.6 MG TABLET PO SCH (21:23)
[2018-12-29] MEDS: CLINDAMYCIN 900 MG in IV D5W 50 ML IV SCH ×3 (06:05→21:31)
--- NOTE | 2018-12-29 06:23 | NUR ---
END OF SHIFT REPORT Patient in bed. Stable oxygen saturation on RA. LFA cellulitis, on IV antibiotic as scheduled VSS, denies pain. Patient is A/O x1 to self only when awake, with confusion, unable to participate with care , poor concentration and judgment, pulling out IV lines. Maintained bilateral soft wrist restraints in place, reassessment every 2 hours, CSM intact in both hands. Bed alarm on and audible at all times.
[2018-12-29 07:17] LABS: BASOPHILS # (AUTO) 0.1 /CMM (0.0-0.2); BASOPHILS % (AUTO) 0.9 % (0.0-2.0); EOSINOPHILS % (AUTO) 5.1 % (0.0-6.0); HEMATOCRIT 38 % (33-45); HEMOGLOBIN 12.4 g/dL (11.5-14.8); LYMPHOCYTES % (AUTO) 16.7 % (20.0-44.0); MEAN CORPUSCULAR HGB CONC 33 g/dl (31.0-36.0); MEAN CORPUSCULAR VOLUME 88 fL (82-100); MONOCYTES # (AUTO) 1.1 /CMM (0.1-1.30); MONOCYTES % (AUTO) 9.1 % (2.0-12.0); NEUTROPHILS # (AUTO) 8.2 /CMM (1.8-8.9); NEUTROPHILS % (AUTO) 68.2 % (43.0-81.0); PLATELET COUNT (AUTO) 269 /CMM (150-450); RED BLOOD CELL COUNT(AUTO) 4.29 MIL/uL (4.0-5.2); WHITE BLOOD COUNT (AUTO) 12.1 K/uL (4.3-11.0)
[2018-12-29 07:18] LABS: CALCIUM, SERUM 9.4 mg/dL (8.5-10.1); CARBON DIOXIDE 27 mmol/L (21-32); CHLORIDE 102 mmol/L (98-107); CREATININE 0.7 mg/dL (0.6-1.3); GLUCOSE 97 mg/dL (74-106); POTASSIUM 4.2 mmol/L (3.5-5.1); SODIUM SERUM 137 mmol/L (136-145); UREA NITROGEN, BLOOD 19 mg/dL (7-18)
--- NOTE | 2018-12-29 07:29 | NUR ---
RN MS OPENING NOTES Received patient on room air, no sob noted. Patient remains a/o x1 at this time. No s/s of pain noted at this time. Patient comfortably lying down on bed. Patient's bed at the lowest setting, call light within reach.
[2018-12-29] MEDS ORDERED: CLIN300C11 PO (08:40)
[2018-12-29] MEDS: ASPIRIN 81 MG TAB.CHEW PO SCH (08:51)
[2018-12-29] MEDS: MEMANTINE HCL 5 MG TABLET PO SCH ×2 (08:51→17:44)
[2018-12-29] MEDS: MULTIVIT W/MINERALS 1 TAB TABLET PO SCH (08:51)
[2018-12-29] MEDS: LEVETIRACETAM (250 MG) 250 MG TABLET PO SCH ×2 (08:55→17:44)
[2018-12-29] MEDS: HYDROCHLOROTHIAZIDE 25 MG TABLET PO SCH (09:00)
[2018-12-29] MEDS: MAGNESIUM OXIDE 400 MG TABLET PO SCH (09:06)
[2018-12-29] MEDS: PROSOURCE / PROSTAT (PYXIS) 30 ML UDC PO SCH (09:07)
[2018-12-29 11:14] LABS: LYMPHOCYTES % (MANUAL) 15 % (16-48); NEUTROPHILS % (MANUAL) 69 (42-76)
[2018-12-29 11:15] LABS: EOSINOPHILS % (MANUAL) 5 % (0-4); MONOCYTES % (MANUAL) 10 % (0-11.0); MYELOCYTES % 1 % (0-0)
[2018-12-29 14:00] VITALS: BP 107/62
[2018-12-29] MEDS: ATORVASTATIN 10 MG TABLET PO SCH (17:44)
[2018-12-29] MEDS: RAMIPRIL 5 MG CAPSULE PO SCH (17:46)
--- NOTE | 2018-12-29 18:25 | NUR ---
RN MS CLOSING NOTES Patient remains on room air, no sob noted. Patient remains confused most of the time. Patient has bilateral restraints and is renewed every 5 hours. Patient's vital signs stable all shift. Patient was not transferred due to the SNF having a flu outbreak. bed at the lowest setting, call light within reach.
[2018-12-29] MEDS: SENNOSIDES 8.6 MG TABLET PO SCH (21:31)
[2018-12-29] MEDS: TRAZODONE 50 MG TABLET PO SCH (21:31)
[2018-12-29] MEDS: DONEPEZIL 5 MG TABLET PO SCH (21:32)
[2018-12-29] MEDS: SALINE NASAL SPRAY 0.65% 1 BOTTLE BOTTLE NS SCH (21:33)
[2018-12-30] MEDS: CLINDAMYCIN 900 MG in IV D5W 50 ML IV SCH ×3 (06:04→20:49)
--- NOTE | 2018-12-30 07:07 | NUR ---
rn notes received patient awake in bed with no distress noted. on room air, breathing even and unlabored. no physical manifestation of pain or discomfort. alert to self, confused unable to follow simple commands. kept clean and dry. for dc to snf . will endorse to next shift for continuity of care.
--- NOTE | 2018-12-30 07:30 | NUR ---
MS RN OPENING NOTE RECEIVED PT IN BED, RESTING WITH EYES CLOSED AND AROUSABLE TO VERBAL AND TACTILE STIMULI. PT IS ALERT AND ORIENTED X1, BREATHING IS EVEN AND UNLABORED ON ROOM AIR, NO ACUTE DISTRESS NOTED AT THIS TIME. LEFT FA #22G IV IS PATENT, CLEAN, DRY AND INTACT. BILATERAL SOFT WRIST RESTRAINTS IN PLACE WITH NEOVASCULAR STATUS INTACT, SAFETY CHECKS INITIATED PER PROTOCOL. ASPIRATION PRECAUTIONS MAINTAINED, ALL NEEDS ATTENDED TO. BED IS LOCKED AND IN LOWEST POSITION, SIDE RAILS UP X2, BED ALARM ON, CALL LIGHT AND POSSESSIONS WITHIN REACH.
[2018-12-30 08:14] VITALS: BP 126/60
[2018-12-30] MEDS: MAGNESIUM OXIDE 400 MG TABLET PO SCH (09:00)
[2018-12-30] MEDS: MULTIVIT W/MINERALS 1 TAB TABLET PO SCH (09:00)
[2018-12-30] MEDS: HYDROCHLOROTHIAZIDE 25 MG TABLET PO SCH (09:00)
[2018-12-30] MEDS: PROSOURCE / PROSTAT (PYXIS) 30 ML UDC PO SCH (09:00)
[2018-12-30] MEDS: MEMANTINE HCL 5 MG TABLET PO SCH ×2 (09:00→17:23)
[2018-12-30] MEDS: LEVETIRACETAM (250 MG) 250 MG TABLET PO SCH ×2 (10:01→17:23)
[2018-12-30] MEDS: ASPIRIN 81 MG TAB.CHEW PO SCH (10:01)
--- NOTE | 2018-12-30 10:01 | NUR ---
MS RN NOTES AM MEDICATIONS GIVEN LATE, PT VERY SLEEPY DURING SCHEDULED MEDICATION TIME AND AT HIGH RISK FOR ASPIRATION.
[2018-12-30 16:36] VITALS: BP 136/64
[2018-12-30] MEDS: RAMIPRIL 5 MG CAPSULE PO SCH (17:22)
[2018-12-30] MEDS: ATORVASTATIN 10 MG TABLET PO SCH (17:23)
--- NOTE | 2018-12-30 18:30 | NUR ---
MS RN CLOSING NOTE PT IN BED, RESTING WITH EYES CLOSED AND AROUSABLE TO VERBAL AND TACTILE STIMULI. PT IS ALERT AND ORIENTED X1, BREATHING IS EVEN AND UNLABORED ON ROOM AIR, NO ACUTE DISTRESS NOTED AT THIS TIME. LEFT FA #22G IV IS PATENT, CLEAN, DRY AND INTACT. BILATERAL SOFT WRIST RESTRAINTS IN PLACE WITH NEOVASCULAR STATUS INTACT, SAFETY CHECKS COMPLETED PER PROTOCOL. ASPIRATION PRECAUTIONS MAINTAINED, ADLS PROVIDED AND PT ASSISTED TO TURN AND REPOSITIONED Q2H FOR THE DURATION OF THE SHIFT. ALL NEEDS ATTENDED TO. BED IS LOCKED AND IN LOWEST POSITION, SIDE RAILS UP X3, BED ALARM ON, CALL LIGHT AND POSSESSIONS WITHIN REACH. WILL ENDORSE TO WATERMASTER NURSE FOR CONTINUITY OF CARE.
--- NOTE | 2018-12-30 19:45 | NUR ---
MS RN NOTES RECEIVED ON BED,A/O X1,CONFUSED,TRYING TO GET OUT OF BED,BILATERAL SOFT RESTRAINTS IN USED FOR SAFETY.RELEASED AND REAPPLY,WITH GOOD CIRCULATION NOTED.SALINE LOC LEFT AC INTACT WITH GOOD BLOOD RETURN NOTED,NS AT TKO RATE IN PROGRESS.FALL PRECAUTION OBSERVED,SIDE RAILS UP X 2,BED ON LOWEST POSITION AND LOCKED.DNR STATUS.
[2018-12-30 20:00] VITALS: BP 144/74
[2018-12-30 20:03] VITALS: BP_SYST 120; BP_SYST 144; BP_DIAS 67; BP_DIAS 74
[2018-12-30 20:16] VITALS: BP 144/74
[2018-12-30] MEDS: SENNOSIDES 8.6 MG TABLET PO SCH (21:53)
[2018-12-30] MEDS: DONEPEZIL 5 MG TABLET PO SCH (21:53)
[2018-12-30] MEDS: TRAZODONE 50 MG TABLET PO SCH (21:53)
[2018-12-30] MEDS: SALINE NASAL SPRAY 0.65% 1 BOTTLE BOTTLE NS SCH (21:54)
--- NOTE | 2018-12-30 22:00 | NUR ---
MS RN NOTES TOOK HER PO MEDS,TAKEN WELL WITH APPLE SAUCE.NEGATIVE FOR ASPIRATION.
--- NOTE | 2018-12-31 01:00 | NUR ---
MS RN NOTES SLEEPING,BILATERAL RESTRAINTS ON BOTH WRIST RELEASED THIS TIME,GOOD CIRCULATION NOTED,REPOSITION TO COMFORT,IVF IN PROGRESS.IN NO ACUTE DISTRESS.WILL ENDORSE TO DAY NURSE FOR ALYSE.
[2018-12-31] MEDS: CLINDAMYCIN 900 MG in IV D5W 50 ML IV SCH ×3 (05:01→21:50)
--- NOTE | 2018-12-31 07:27 | NUR ---
MS/RN Patient received Patient recieved from medical education manager, sleeping soundly at this time. Appears in no distress or discomfort. Remains with bilateral soft wrist restraints as continuously attempting to pull at all lines and climb out of bed. Will continue to assess patient and remove restraints when able.
--- NOTE | 2018-12-31 07:36 | NUR ---
MS/RN S/B Dr Samano Seen by MD - patient cleared for discharge once flu outbreak at senior care facility has been cleared.
[2018-12-31 07:59] VITALS: BP 111/56
[2018-12-31 08:00] VITALS: BP 111/56
[2018-12-31] MEDS: MAGNESIUM OXIDE 400 MG TABLET PO SCH (08:41)
[2018-12-31] MEDS: MEMANTINE HCL 5 MG TABLET PO SCH ×2 (08:42→17:17)
[2018-12-31] MEDS: LEVETIRACETAM (250 MG) 250 MG TABLET PO SCH ×2 (08:42→17:17)
[2018-12-31] MEDS: ASPIRIN 81 MG TAB.CHEW PO SCH (08:42)
[2018-12-31] MEDS: MULTIVIT W/MINERALS 1 TAB TABLET PO SCH (08:42)
[2018-12-31] MEDS: HYDROCHLOROTHIAZIDE 25 MG TABLET PO SCH (08:43)
[2018-12-31] MEDS: PROSOURCE / PROSTAT (PYXIS) 30 ML UDC PO SCH (08:55)
--- NOTE | 2018-12-31 09:30 | NUR ---
MS/RN Medications Medications administered as ordered, no difficulty swallowing.
--- NOTE | 2018-12-31 12:52 | NUR ---
MS/RN Consents Patient consented for bone marrow biopsy at 4:30p. Addendum: 12/31/18 at 1255 by HERI MONTEJO please disregard note, wrong patient.
--- NOTE | 2018-12-31 12:56 | NUR ---
MS/RN IVAB IVAB hung, no reaction noted.
[2018-12-31 16:00] VITALS: BP 129/60
[2018-12-31] MEDS: ATORVASTATIN 10 MG TABLET PO SCH (17:17)
[2018-12-31] MEDS: RAMIPRIL 5 MG CAPSULE PO SCH (17:20)
--- NOTE | 2018-12-31 18:07 | NUR ---
MS/RN Heplock New heplock inserted to left forearm, 20g.
--- NOTE | 2018-12-31 18:36 | NUR ---
MS/RN End note No changes at this time, will endore to lieutenant shift supervisor.
--- NOTE | 2018-12-31 19:20 | NUR ---
MS/RN NOTES RECEIVED PT. LYING IN BED. PT. IS AWAKE, ALERT AND ORIENTED X1. BREATHING EVEN AND UNLABORED ON ROOM AIR. NO SOB, RESPIRATORY DISTRESS OR COMPLAINTS OF PAIN NOTED AT THIS TIME. PT. WITH LEFT FOREARM 20 GAUGE IV SALINE LOCK PRESENT, PATENT AND INTACT. PT. WITH BILATERAL SOFT WRIST RESTRAINTS PRESENT AND INTACT. CIRCULATION CHECK DONE. BED LOCKED AND IN LOWEST POSITION, SIDE RAILS UP X3, BED ALARM ON, WILL CONTINUE TO MONITOR.
[2018-12-31 20:00] VITALS: BP 141/77
[2018-12-31] MEDS: TRAZODONE 50 MG TABLET PO SCH (22:08)
[2018-12-31] MEDS: SALINE NASAL SPRAY 0.65% 1 BOTTLE BOTTLE NS SCH (22:08)
[2018-12-31] MEDS: DONEPEZIL 5 MG TABLET PO SCH (22:09)
[2018-12-31] MEDS: SENNOSIDES 8.6 MG TABLET PO SCH (22:09)
[2019-01-01] MEDS: CLINDAMYCIN 900 MG in IV D5W 50 ML IV SCH ×2 (05:47→12:43)
--- NOTE | 2019-01-01 06:08 | NUR ---
MS/RN NOTES PT. IS LYING IN BED RESTING. BREATHING EVEN AND UNLABORED ON ROOM AIR. NO SOB, RESPIRATORY DISTRESS OR COMPLAINTS OF PAIN NOTED AT THIS TIME. PT. WITH LEFT FOREARM 20 GAUGE IV SALINE LOCK PRESENT, PATENT AND INTACT. PT. WITH BILATERAL SOFT WRIST RESTRAINTS PRESENT AND INTACT. CIRCULATION CHECK DONE. ALL PT. NEEDS MET. PT. OFFLOADED, TURNED AND REPOSITIONED Q2H AND NEEDED. BED LOCKED AND IN LOWEST POSITION, SIDE RAILS UP X3, BED ALARM ON, WILL ENDORSE TO DAYSHIFT NURSE FOR CONTINUITY OF CARE.
[2019-01-01 07:17] LABS: BASOPHILS # (AUTO) 0.1 /CMM (0.0-0.2); EOSINOPHILS % (AUTO) 4.1 % (0.0-6.0); HEMATOCRIT 37 % (33-45); HEMOGLOBIN 12.4 g/dL (11.5-14.8); LYMPHOCYTES # (AUTO) 2.7 /CMM (0.8-4.8); LYMPHOCYTES % (AUTO) 27.3 % (20.0-44.0); MEAN CORPUSCULAR HGB CONC 33 g/dl (31.0-36.0); MEAN CORPUSCULAR VOLUME 89 fL (82-100); MONOCYTES # (AUTO) 0.7 /CMM (0.1-1.30); MONOCYTES % (AUTO) 6.8 % (2.0-12.0); NEUTROPHILS # (AUTO) 6.1 /CMM (1.8-8.9); NEUTROPHILS % (AUTO) 60.8 % (43.0-81.0); PLATELET COUNT (AUTO) 324 /CMM (150-450); RED BLOOD CELL COUNT(AUTO) 4.21 MIL/uL (4.0-5.2); WHITE BLOOD COUNT (AUTO) 10.1 K/uL (4.3-11.0)
[2019-01-01 07:22] LABS: CALCIUM, SERUM 9.1 mg/dL (8.5-10.1); CARBON DIOXIDE 27 mmol/L (21-32); CHLORIDE 104 mmol/L (98-107); CREATININE 0.9 mg/dL (0.6-1.3); GLUCOSE 84 mg/dL (74-106); POTASSIUM 4.2 mmol/L (3.5-5.1); SODIUM SERUM 139 mmol/L (136-145); UREA NITROGEN, BLOOD 20 mg/dL (7-18)
[2019-01-01 08:00] VITALS: BP 112/56
--- NOTE | 2019-01-01 08:00 | NUR ---
MS RN RECEIVED ON BED,SLEEPING,NOT IN ANY FORM OF DISTRESS, RESPIRATIONS EVEN AND UNLABORED,NO SOB NOTED, LUNGS ARE DIMINISHED,ABDOMEN SOFT,POSITIVE BOWEL SOUNDS,DENIES PAIN AT THIS TIME, WILL MONITOR PATIENT'S CONDITION.PATIENT W/ SITTER FOR SAFETY AND COMFORT,ALL NEEDS ATTENDED.
[2019-01-01 09:00] VITALS: BP 112/56
[2019-01-01] MEDS: HYDROCHLOROTHIAZIDE 25 MG TABLET PO SCH (09:00)
--- NOTE | 2019-01-01 09:05 | NUR ---
MS PABON BREAKFAST SERVED,DUE MEDS GIVEN,TOLERATED WELL.
[2019-01-01] MEDS: LEVETIRACETAM (250 MG) 250 MG TABLET PO SCH (09:27)
[2019-01-01] MEDS: MAGNESIUM OXIDE 400 MG TABLET PO SCH (09:27)
[2019-01-01] MEDS: MEMANTINE HCL 5 MG TABLET PO SCH (09:27)
[2019-01-01] MEDS: ASPIRIN 81 MG TAB.CHEW PO SCH (09:27)
[2019-01-01] MEDS: MULTIVIT W/MINERALS 1 TAB TABLET PO SCH (09:27)
[2019-01-01] MEDS: PROSOURCE / PROSTAT (PYXIS) 30 ML UDC PO SCH (12:43)
--- NOTE | 2019-01-01 13:00 | NUR ---
ms amy gave report to sarah at [facility].
[2019-01-01] MEDS ORDERED: ENSURE ENLIVE 237 ML LIQUID (VANILLA) PO SCH (13:30)
--- NOTE | 2019-01-01 15:57 | NUR ---
ms rn patient transferred to snf w/ orders, gave instructions to rn,all needs attended.
== END 2019-01-01 16:30 | DRG 603 ==
LOC: ER 12:54 → MED 14:17
PROVIDERS: ADMIT Family Medicine; ATTEND Family Medicine
DX: L03.114 Cellulitis of left upper limb (principal); E44.0 Moderate protein-calorie malnutrition; G40.909 Epilepsy, unspecified, not intractable, without status epilepticus; F25.9 Schizoaffective disorder, unspecified; F03.90 Unspecified dementia, unspecified severity, without behavioral disturbance, psychotic disturbance, mood disturbance, and anxiety; I11.9 Hypertensive heart disease without heart failure; F41.9 Anxiety disorder, unspecified; E78.5 Hyperlipidemia, unspecified; E87.6 Hypokalemia; E88.09 Other disorders of plasma-protein metabolism, not elsewhere classified; Z87.891 Personal history of nicotine dependence; D72.829 Elevated white blood cell count, unspecified; Z68.23 Body mass index [BMI] 23.0-23.9, adult
CPT/HCPCS: 36415; 71045-TC; 73080-TC; 80048-TC; 80061-TC; 80076-TC; 83605-TC; 83735-TC; 84100-TC; 84484-TC; 85025-TC; 85730-TC; 87040-TC; 87081-TC; G0378; J3370; J3490; J7030; J7040; J7050; J7060

== ENCOUNTER 2019-09-24 16:01 | Inpatient (IN) | payer MEDICARE, OTHER ==
[~2019-09-24] VITALS: Ht 154.9 cm; Wt 53.5 kg
[~2019-09-24 16:01] MED LIST changes: +AMIN30LI27 PO; -BISA10SU8 RC; +CLIN300C11 PO; +DONE10TA44 PO; -FERR325T24 PO; -POLY17PO4 PO; -RISP0.253 PO; +SODI45SP4 NS; -TRIA10.8 BNOSTRILS; -TRIA16.99 BNOSTRILS
--- NOTE | 2019-09-24 16:10 | NUR ---
jaime from facility to the ED for evaluation of altered mental status since this morning. Patient reportedly had a fall 2 days ago. She does not provide any significant history at this time. Pt is uncomprehensible. Able to move all extremities, no neuro deficit. Pt is [id number] (name, place). Placed on monitor and pulse ox. VSS. Awaiting MD for eval.
--- NOTE | 2019-09-24 16:40 | NUR ---
Brought to ct
--- NOTE | 2019-09-24 16:50 | NUR ---
labs collected by editorial project manager
[2019-09-24 17:01] LABS: BASOPHILS # (AUTO) 0.1 /CMM (0.0-0.2); BASOPHILS % (AUTO) 1.2 % (0.0-2.0); EOSINOPHILS % (AUTO) 3.9 % (0.0-6.0); HEMATOCRIT 35 % (33-45); HEMOGLOBIN 11.7 g/dL (11.5-14.8); LYMPHOCYTES # (AUTO) 1.6 /CMM (0.8-4.8); LYMPHOCYTES % (AUTO) 16.8 % (20.0-44.0); MEAN CORPUSCULAR HGB CONC 33 g/dl (31.0-36.0); MEAN CORPUSCULAR VOLUME 89 fL (82-100); MONOCYTES # (AUTO) 0.8 /CMM (0.1-1.30); MONOCYTES % (AUTO) 8.5 % (2.0-12.0); NEUTROPHILS # (AUTO) 6.8 /CMM (1.8-8.9); NEUTROPHILS % (AUTO) 69.6 % (43.0-81.0); PLATELET COUNT (AUTO) 215 /CMM (150-450); RED BLOOD CELL COUNT(AUTO) 3.96 MIL/uL (4.0-5.2); WHITE BLOOD COUNT (AUTO) 9.8 K/uL (4.3-11.0)
--- NOTE | 2019-09-24 17:03 | NUR ---
urine collected and sent to lab
[2019-09-24 17:15] LABS: APPEARANCE,URINE Clear (CLEAR); BILIRUBIN,URINE Negative (NEGATIVE); BLOOD, URINE Negative Ery/uL (NEGATIVE); COLOR,URINE Yellow (YELLOW); KETONES,URINE Negative (NEGATIVE); LEUKOCYTE ESTERASE ,URINE Negative (NEGATIVE); NITRITE, URINE Negative (NEGATIVE); PH,URINE 8.5 (5.0-8.0); PROTEIN,URINE Negative (NEGATIVE); UGLUCOSE Negative (NEGATIVE)
[2019-09-24 17:35] LABS: ALANINE AMINOTRANSFERASE 18 U/L (12-78); ALBUMIN 3.4 g/dL (3.4-5.0); ALKALINE PHOSPHATASE 128 U/L (46-116); ASPARTATE AMINOTRANSFERASE 22 U/L (15-37); BILIRUBIN,TOTAL 0.2 mg/dL (0.2-1.0); CALCIUM, SERUM 9.5 mg/dL (8.5-10.1); CARBON DIOXIDE 29 mmol/L (21-32); CHLORIDE 106 mmol/L (98-107); CREATININE 1.3 mg/dL (0.6-1.3); GLUCOSE 99 mg/dL (74-106); POTASSIUM 4.7 mmol/L (3.5-5.1); SODIUM SERUM 144 mmol/L (136-145); TOTAL PROTEIN, SERUM 7.3 g/dL (6.4-8.2); UREA NITROGEN, BLOOD 35 mg/dL (7-18)
--- NOTE | 2019-09-24 18:25 | NUR ---
Patient is resting comfortably in bed. Easily aroused. VSS.
--- NOTE | 2019-09-24 18:26 | NUR ---
CALLED FOR BED AND SUBMITTED MOVE SHEET TO ADMITTING
[2019-09-24] MEDS ORDERED: IV NS 0.9% 1,000 ML BAG IV ONE (18:30)
--- NOTE | 2019-09-24 20:54 | NUR ---
UPDATED BED 309-1
--- NOTE | 2019-09-24 21:14 | NUR ---
REPORT GIVEN TO KEYUR PABON FOR ALYSE
--- NOTE | 2019-09-24 21:15 | NUR ---
ADMISSION NOTE PATIENT ADMITTED TO ROOM 309 BED 1 FROM [facility] FOR AMS AND RECENT FALLS. PATIENT IS ALERT AND ORIENTED X1 IN NO APPARENT DISTRESS. ON RA. TELE APPLIED. PT SB AT 54. PATIENT PLACED IN BED WITH SRX3. CALL LIGHT PLACED WITHIN REACH SKIN ASSESSMENT PERFORMED PATIENT HAS SOME REDNESS TO GROIN AREA AND HAS SKIN TEAR TO RIGHT INDEX FINGER PICTURES TAKEN. NEW ORDERS RECIEVED FROM LAENNA GAYTAN.
[2019-09-24] MEDS ORDERED: ONDANSETRON HCL/PF 4 MG/2 ML VIAL IVP PRN (21:30)
[2019-09-24] MEDS ORDERED: Z GUARD REMEDY 2 OZ OINT TP PRN (21:30)
[2019-09-24] MEDS ORDERED: ACETAMINOPHEN 325 MG TABLET PO PRN (21:30)
--- NOTE | 2019-09-24 21:33 | NUR ---
PT TRANSFERED PER ACLS PROTOCOL
--- NOTE | 2019-09-24 22:00 | NUR ---
CALLED AND SPOKE TO TIARA VASQUEZ PHONE [phone] AND REVIEWED PATIENTS ADMISSION. CONFIRMED WITH DPOA THAT PATIENT WISHES TO BE DNR POLST ON CHART STATES. STATES PATIENT HAS BEEN A LONGTIME RESIDENT OF SNF. STATES THAT YOGI NURSE PHONE [phone] INVOLVED IN HER CARE WILL BE IN TO VISIT PATIENT AT SOME TIME OR ANOTHER SISTER MIGHT VISIT TOMORROW THAT LIVES CLOSE BY.
--- NOTE | 2019-09-24 22:30 | NUR ---
CONTACTED LUKAS RAM TO INFORM OF PATIENTS WISHES TO BE DNR. NEW ORDER FOR CODE CHANGE RECIEVED FOR DNR STATUS PER POLST AND IN AGREEMENT FROM EARLIER CONVERSTAION WITH DPOA.
[2019-09-24] MEDS: SENNOSIDES 8.6 MG TABLET PO SCH (23:04)
[2019-09-24] MEDS: IV NS 0.9% 1,000 ML IV PRN (23:04)
[2019-09-24] MEDS: DONEPEZIL 5 MG TABLET PO SCH (23:05)
[2019-09-25 03:29] LABS: BASOPHILS # (AUTO) 0.1 /CMM (0.0-0.2); EOSINOPHILS % (AUTO) 4.8 % (0.0-6.0); HEMATOCRIT 37 % (33-45); HEMOGLOBIN 11.9 g/dL (11.5-14.8); LYMPHOCYTES % (AUTO) 18.7 % (20.0-44.0); MEAN CORPUSCULAR HGB CONC 33 g/dl (31.0-36.0); MEAN CORPUSCULAR VOLUME 88 fL (82-100); MONOCYTES # (AUTO) 0.9 /CMM (0.1-1.30); MONOCYTES % (AUTO) 8.2 % (2.0-12.0); NEUTROPHILS # (AUTO) 7.1 /CMM (1.8-8.9); NEUTROPHILS % (AUTO) 67.3 % (43.0-81.0); PLATELET COUNT (AUTO) 207 /CMM (150-450); RED BLOOD CELL COUNT(AUTO) 4.17 MIL/uL (4.0-5.2); WHITE BLOOD COUNT (AUTO) 10.6 K/uL (4.3-11.0)
[2019-09-25] MEDS: LORAZEPAM INJ 2 MG/ML VIAL IV PRN (03:37)
--- NOTE | 2019-09-25 03:40 | NUR ---
ativan adminstered prn. shantanu contacted earlier and order for ativan prn given for agitation. patient has been trying to climb out of bed for last hour per rail car operator sitter. patient removed iv line while disrobing from gown. ativan administered as ordered for agitation. new iv inserted to left hand 20 gauge ivf restarted. patient seems more relaxed in bed. tele reapplied. will cont to monitor.
[2019-09-25 03:44] LABS: ALANINE AMINOTRANSFERASE 15 U/L (12-78); ALBUMIN 3.4 g/dL (3.4-5.0); ALKALINE PHOSPHATASE 122 U/L (46-116); ASPARTATE AMINOTRANSFERASE 17 U/L (15-37); BILIRUBIN,TOTAL 0.4 mg/dL (0.2-1.0); CALCIUM, SERUM 8.9 mg/dL (8.5-10.1); CARBON DIOXIDE 24 mmol/L (21-32); CHLORIDE 106 mmol/L (98-107); CREATININE 1.2 mg/dL (0.6-1.3); GLUCOSE 91 mg/dL (74-106); MAGNESIUM 1.8 mg/dL (1.8-2.4); PHOSPHORUS 3.6 mg/dL (2.5-4.9); POTASSIUM 3.5 mmol/L (3.5-5.1); SODIUM SERUM 140 mmol/L (136-145); UREA NITROGEN, BLOOD 29 mg/dL (7-18)
[2019-09-25 03:49] LABS: CHOLESTEROL 157 mg/dL (<200); HDL CHOLESTEROL 71 mg/dL (40-60); LDL 77 mg/dL (0-99); TRIGLYCERIDES 66 mg/dL (30-150)
--- NOTE | 2019-09-25 06:30 | NUR ---
RN CLOSING NOTE PATIENT IN BED IN NO APPARENT DISTRESS BREATHING EVEN AND UNLABORED FLACC SCALKE OF 0/10 PAIN. PATIENT LAYING FLAT IN NO APPARENT DISTRESS. SITTER AT THE BEDSIDE. BED DOWN LOCKED SRX3. ON RA.
--- NOTE | 2019-09-25 07:00 | NUR ---
Tele/RN opening Note Received patient in bed sleeping, able to responds pain stimuli. No behavior observed at this time and does no appears pain or any discomfort, skin is warm to touch, clean/dry, intact IV site. Respiratory even and unlabored in room air. keep lower position of bed with elevated HOB, sitter at bed side for safety. Call light within reach, will continue to monitor.
[2019-09-25 08:00] VITALS: BP_SYST 114; BP_SYST 148; BP_DIAS 43; BP_DIAS 88
[2019-09-25] MEDS: MEMANTINE HCL 5 MG TABLET PO SCH ×2 (09:22→17:25)
[2019-09-25] MEDS: LEVETIRACETAM SOL (5 ML) 100 MG/ML UDC PO SCH ×2 (09:22→21:26)
[2019-09-25] MEDS: MAGNESIUM OXIDE 400 MG TABLET PO SCH (09:22)
[2019-09-25] MEDS: MULTIVITAMINS,THERAGRAN 1 UDTAB TABLET PO SCH (09:22)
[2019-09-25] MEDS: ASPIRIN 81 MG TAB.CHEW PO SCH (09:23)
[2019-09-25] MEDS: PROSOURCE / PROSTAT (PYXIS) 30 ML UDC PO SCH (09:24)
[2019-09-25] MEDS: ENOXAPARIN SODIUM 30 MG/0.3 ML DISP.SYRIN SQ SCH (09:24)
--- NOTE | 2019-09-25 14:07 | NUR ---
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 Pt's DPOA is Elise .
[2019-09-25 16:00] VITALS: BP_SYST 143; BP_SYST 158; BP_DIAS 64; BP_DIAS 70
[2019-09-25] MEDS: RAMIPRIL 5 MG CAPSULE PO SCH (17:26)
[2019-09-25] MEDS: ATORVASTATIN 10 MG TABLET PO SCH (17:27)
[2019-09-25] MEDS: IV NS 0.9% 1,000 ML IV PRN (17:36)
--- NOTE | 2019-09-25 18:30 | NUR ---
Tele/RN Closing Note Patient is in bed sleeping comfortably, daughter is at bed side. Skin is warm to touch, clean/dry, intact IV site, keep running NS at 75ml/hr for hydration. Respiratory even and unlabored with room air. Kept lower position of bed with elevated HOB. Call light within reach, will endorse warehouse shift supervisor.
--- NOTE | 2019-09-25 19:40 | NUR ---
REGIONAL CLINICAL DIRECTOR: RECEIVED REPORT FROM SIA PABON AT 1920. PT IN BED, 1:1 SITTER AT BED SIDE, PT TRYING TO GET OUT OF BED, MOVING SO MUCH IN BED, HIGH RISK FOR FALL, AMS, A/O X1 ONLY. IV ACCESS PATENT AND FLUSHING WELL, INFUSING WITH NS AT 75ML/HR. SAFETY PRECAUTIONS FOR FALL INITIATED, CALL LIGHT IN REACH, WILL CONTINUE MONITORING PT.
[2019-09-25 20:00] VITALS: BP 102/63
[2019-09-25 21:21] VITALS: BP 145/93
[2019-09-25] MEDS: DONEPEZIL 5 MG TABLET PO SCH (21:26)
[2019-09-25] MEDS: SENNOSIDES 8.6 MG TABLET PO SCH (21:26)
--- NOTE | 2019-09-25 21:40 | NUR ---
RN NOTES: ASSISTED IN FEEDING PT, PT CONSUMED SNACK 100%
[2019-09-25 23:57] VITALS: BP 138/93
[2019-09-26] MEDS: LORAZEPAM INJ 2 MG/ML VIAL IV PRN (00:03)
--- NOTE | 2019-09-26 00:04 | NUR ---
prn ativan: pt very restless and agitated, vs taken and recorded, prn ativan 0.5ml (1mg) ivp administered to pt at this time. will continue to monitor and reassess pt's behavior. sitter at bed side. safety precautions for fall remains engaged.
[2019-09-26] MEDS: IV NS 0.9% 1,000 ML IV PRN ×2 (05:42→22:33)
--- NOTE | 2019-09-26 06:43 | NUR ---
end of shift report. pt remains a/o x1, on ra, appears calm and comfortable, no facial grimace noted, respirations even and unlabored. iv access remains patent and flushing well, infusing with ns at 75ml/hr. sitter remains at bed side, pt high fall risk, manage to move frequently in bed. prn ativan administered for agitation/restlessness. seen by neuro md dr herrera. kept on seizure precautions, suction set up secured. kept on aspiration precautions. ble kept offloaded. safety precautions for fall remains engaged, call light in reach, will endorse to day rn for continuity of care.
--- NOTE | 2019-09-26 07:00 | NUR ---
MS/RN Opening Note Received patient in bed, able to responds all stimuli. sitter at bed side, no behavior observed at this time. Skin is warm to touch, no appears pain or any discomfort. Respiratory even and unlabored with oxygen at 2LPM. Keep lower position of bed with elevated HOB. Call light within reach, will continue to monitor.
[2019-09-26 07:08] LABS: BASOPHILS # (AUTO) 0.1 /CMM (0.0-0.2); BASOPHILS % (AUTO) 0.8 % (0.0-2.0); EOSINOPHILS % (AUTO) 5.8 % (0.0-6.0); HEMATOCRIT 33 % (33-45); HEMOGLOBIN 10.9 g/dL (11.5-14.8); LYMPHOCYTES # (AUTO) 1.6 /CMM (0.8-4.8); LYMPHOCYTES % (AUTO) 16.4 % (20.0-44.0); MEAN CORPUSCULAR HGB CONC 33 g/dl (31.0-36.0); MEAN CORPUSCULAR VOLUME 88 fL (82-100); MONOCYTES # (AUTO) 0.9 /CMM (0.1-1.30); MONOCYTES % (AUTO) 8.8 % (2.0-12.0); NEUTROPHILS # (AUTO) 6.6 /CMM (1.8-8.9); NEUTROPHILS % (AUTO) 68.2 % (43.0-81.0); PLATELET COUNT (AUTO) 186 /CMM (150-450); RED BLOOD CELL COUNT(AUTO) 3.77 MIL/uL (4.0-5.2); WHITE BLOOD COUNT (AUTO) 9.7 K/uL (4.3-11.0)
[2019-09-26 08:00] VITALS: BP 149/64
[2019-09-26 08:27] LABS: ALBUMIN 3.1 g/dL (3.4-5.0); BILIRUBIN,TOTAL 0.5 mg/dL (0.2-1.0); CALCIUM, SERUM 8.4 mg/dL (8.5-10.1); MAGNESIUM 1.7 mg/dL (1.8-2.4); PHOSPHORUS 2.9 mg/dL (2.5-4.9); POTASSIUM 3.5 mmol/L (3.5-5.1); TOTAL PROTEIN, SERUM 6.5 g/dL (6.4-8.2)
[2019-09-26] MEDS: LEVETIRACETAM SOL (5 ML) 100 MG/ML UDC PO SCH ×2 (08:53→22:03)
[2019-09-26] MEDS: PROSOURCE / PROSTAT (PYXIS) 30 ML UDC PO SCH (08:53)
[2019-09-26] MEDS: ASPIRIN 81 MG TAB.CHEW PO SCH (08:53)
[2019-09-26] MEDS: MULTIVITAMINS,THERAGRAN 1 UDTAB TABLET PO SCH (08:54)
[2019-09-26] MEDS: MAGNESIUM OXIDE 400 MG TABLET PO SCH (08:54)
[2019-09-26] MEDS: MEMANTINE HCL 5 MG TABLET PO SCH ×2 (08:56→18:06)
[2019-09-26] MEDS: ENOXAPARIN SODIUM 30 MG/0.3 ML DISP.SYRIN SQ SCH (08:56)
[2019-09-26] MEDS: Magnesium 1GM/D5W 100ML PREMIX 100 ML IV SCH ×2 (15:09→15:47)
[2019-09-26 16:00] VITALS: BP 146/70
[2019-09-26] MEDS: RAMIPRIL 5 MG CAPSULE PO SCH (18:07)
[2019-09-26] MEDS: ATORVASTATIN 10 MG TABLET PO SCH (18:07)
--- NOTE | 2019-09-26 18:30 | NUR ---
MS/RN Closing Note Patient is sleeping comfortably in bed, sitter at bed side for patient safety, no appears pain or any discomfort. Skin is warm to touch, kept intact IV site. Resp. even and unlabored with room air, no sob or distress observed. Keep remain lower portion of bed with elevated HOB. Call light within reach, all needs met, will endorse night nurse.
[2019-09-26 20:00] VITALS: BP 139/71
--- NOTE | 2019-09-26 20:05 | NUR ---
GASOLINE FINISHER: RECEIVED REPORT FROM SIA PABON AT 1920. PT IN BED, PT TRYING TO GET OUT OF BED, 1:1 SITTER AT BED SIDE, HIGH RISK FOR FALL, A/O X1 ONLY. NOTED IV ACCESS INFILTRATED, STARTED NEW LINE ON RIGHT HAND USING G 22, CONNECTED BACK TO IVF ORDERED. SAFETY PRECAUTIONS FOR FALL INITIATED, CALL LIGHT IN REACH, WILL CONTINUE MONITORING PT.
[2019-09-26] MEDS: SENNOSIDES 8.6 MG TABLET PO SCH (22:03)
[2019-09-26] MEDS: DONEPEZIL 5 MG TABLET PO SCH (22:03)
--- NOTE | 2019-09-27 06:38 | NUR ---
end of shift report. pt remains a/o x1, on ra, appears calm and comfortable, iv access remains patent and flushing well, infusing with ns at 75ml/hr. sitter remains at bed side, pt high fall risk, manage to move frequently in bed. kept on seizure precautions, suction set up secured. kept on aspiration precautions. ble kept offloaded. safety precautions for fall remains engaged, call light in reach, will endorse to day rn for continuity of care.
[2019-09-27 06:56] LABS: BASOPHILS # (AUTO) 0.1 /CMM (0.0-0.2); BASOPHILS % (AUTO) 0.8 % (0.0-2.0); EOSINOPHILS % (AUTO) 8.5 % (0.0-6.0); HEMATOCRIT 34 % (33-45); HEMOGLOBIN 11.1 g/dL (11.5-14.8); LYMPHOCYTES # (AUTO) 1.5 /CMM (0.8-4.8); MEAN CORPUSCULAR HGB CONC 33 g/dl (31.0-36.0); MEAN CORPUSCULAR VOLUME 88 fL (82-100); MONOCYTES # (AUTO) 0.8 /CMM (0.1-1.30); NEUTROPHILS # (AUTO) 5.8 /CMM (1.8-8.9); NEUTROPHILS % (AUTO) 64.7 % (43.0-81.0); PLATELET COUNT (AUTO) 175 /CMM (150-450); RED BLOOD CELL COUNT(AUTO) 3.84 MIL/uL (4.0-5.2); WHITE BLOOD COUNT (AUTO) 8.9 K/uL (4.3-11.0)
--- NOTE | 2019-09-27 07:00 | NUR ---
patient resting in bed- no complaints of pain - safety precautions in place- received bedside sbar- piv infusing - will continue to monitor report and record.
[2019-09-27 07:18] LABS: CALCIUM, SERUM 8.3 mg/dL (8.5-10.1); CREATININE 0.9 mg/dL (0.6-1.3); MAGNESIUM 2.2 mg/dL (1.8-2.4); PHOSPHORUS 3.2 mg/dL (2.5-4.9); POTASSIUM 3.7 mmol/L (3.5-5.1)
[2019-09-27] MEDS: MULTIVITAMINS,THERAGRAN 1 UDTAB TABLET PO SCH (08:46)
[2019-09-27] MEDS: MAGNESIUM OXIDE 400 MG TABLET PO SCH (08:47)
[2019-09-27] MEDS: ASPIRIN 81 MG TAB.CHEW PO SCH (08:47)
[2019-09-27] MEDS: MEMANTINE HCL 5 MG TABLET PO SCH (08:47)
[2019-09-27] MEDS: LEVETIRACETAM SOL (5 ML) 100 MG/ML UDC PO SCH (08:47)
[2019-09-27] MEDS: ENOXAPARIN SODIUM 30 MG/0.3 ML DISP.SYRIN SQ SCH (08:54)
--- NOTE | 2019-09-27 12:51 | NUR ---
REPORT CALLED TO PEPPER MENJIVAR AT [facility]- DISCHARGE INSTRUCTIONS INCLUDED- WILL PROVIDE REPORT TO TRANSPORTATION WHEN THEY ARRIVE EST 1600
--- NOTE | 2019-09-27 12:54 | NUR ---
CURRENT FACILITY IS CALLED [facility] [phone]
--- NOTE | 2019-09-27 16:00 | NUR ---
patient resting in room - no complaints or concerns- resting w/out s/s of distress- safety precautions in place -waiting for patient transport - will continue to monitor report and record
--- NOTE | 2019-09-27 17:00 | NUR ---
PATIENT IV REMOVED- DISCHARGE INSTRUCTIONS, PERSONAL BELONGINGS AND REPORT GIVEN TO TRANSPORT-PATIENT ESCORTED OFF UNIT
== END 2019-09-27 16:55 | DRG 640 ==
LOC: ER 16:13 → TELE 20:36 → MED 09-25 09:03
PROVIDERS: ADMIT Nurse Practitioner Acute Care; ATTEND Nurse Practitioner Acute Care
DX: E86.0 Dehydration (principal); G93.41 Metabolic encephalopathy; E44.1 Mild protein-calorie malnutrition; F25.9 Schizoaffective disorder, unspecified; G40.909 Epilepsy, unspecified, not intractable, without status epilepticus; I25.10 Atherosclerotic heart disease of native coronary artery without angina pectoris; E88.09 Other disorders of plasma-protein metabolism, not elsewhere classified; F03.90 Unspecified dementia, unspecified severity, without behavioral disturbance, psychotic disturbance, mood disturbance, and anxiety; Z87.891 Personal history of nicotine dependence; Z68.22 Body mass index [BMI] 22.0-22.9, adult; Z91.81 History of falling; I11.9 Hypertensive heart disease without heart failure; R40.2423 Glasgow coma scale score 9-12, at hospital admission
CPT/HCPCS: 36415; 70450-TC; 71045-TC; 80048-TC; 80053-TC; 80061-TC; 80076-TC; 81000-TC; 82962-TC; 83605-TC; 83735-TC; 84100-TC; 84484-TC; 85025-TC; 85730-TC; 87040-TC; 87081-TC; 87086-TC; 97112-TC; 97116-TC; 97530-TC; G0378; J1650; J1953; J2060; J3475; J7030